=== PATIENT | female | born 1990 | race Two or more races ===

== ENCOUNTER 2024-12-06 18:22 | Inpatient (IN) | payer MEDICAID, SELFPAY ==
[2024-12-06] VITALS (41 sets, daily range): BP systolic 51–126; BP diastolic 31–92; PULSE 83–118; RESP 13–27; O2SAT 93–100; BMI 29.0
--- NOTE | 2024-12-06 18:31 | PD.EDCPR ---
ED CPR RME/HPI General Chief Complaint: Cardiac Arrest/CPR Stated Complaint: CARDIAC ARREST Time Seen by Provider: 12/06/24 18:55 Source: EMS Arrival date/time: 12/06/24 18:22 Mode of arrival: EMS Limitations: other (unresponsive) RME / HPI RME / HPI narrative: Dr. Vallejo?s Main ED Evaluation: 34-year-old female with history of seizure disorder was transported to the Emergency Department via ambulance after a CODE BLUE was activated. Per the EMS report, the patient's stated that she was napping when he found her unresponsive. He noted what he believed to be seizure-like activity and is considered she may have aspirated.. The patient subsequently experienced cardiac arrest, with loss of pulse. However, ROSC was achieved here. Upon arrival at the Emergency Department, the patient was unresponsive and required continued critical stabilization. No reliable historian is currently available to provide further medical history, including past seizures, cardiac issues, or other chronic conditions. MD complaint: found unresponsive Timing confirmed by: spouse Place: home Related Data Home Medications ?Medication ?Instructions ?Recorded ?Confirmed cetirizine 10 mg tablet (Zyrtec) 10 mg PO HS 09/09/23 09/09/23 dapsone 25 mg tablet 25 mg PO BID 09/09/23 09/09/23 famotidine 20 mg tablet 20 mg PO BID 09/09/23 09/09/23 hydroxyzine HCl 10 mg tablet 10 mg PO QID 09/09/23 09/09/23 levetiracetam 750 mg tablet 750 mg PO Q12H 09/09/23 09/09/23 (Keppra) montelukast 10 mg tablet 10 mg PO QPM 09/09/23 09/09/23 (Singulair) omalizumab 150 mg/mL subcutaneous 150 mg subcut QMONTH 09/09/23 09/09/23 syringe (Xolair) Allergies Allergy/AdvReac Type Severity Reaction Status Date / Time lamotrigine Allergy Intermediate rash Verified 09/10/23 11:25 Review of Systems Review of Systems Narrative Review of Systems: The review of systems is unobtainable due to the patient's unresponsive state. Limited information from EMS and the indicates recent seizure activity, loss of consciousness, possible aspiration, and cardiac arrest. Past Medical History Past Medical History NEUROLOGIC: Positive Neurological Disorders, Seizures and Migraine CARDIAC: Negative Cardiac Disorders or Congestive Heart Failure RESPIRATORY: Negative Chronic Obstructive Pulmonary Disease (COPD) GASTROINTESTINAL: Negative Gastrointestinal Disorders or Hepatitis GENITOURINARY: Negative Genitourinary Disorders or Renal Disease REPRODUCTIVE: Positive Previous Pregnancies MUSCULOSKELETAL: Positive Musculoskeletal Disorders ENDOCRINE: Negative Endocrine Disorders, Diabetes Mellitus Type 1 or Diabetes Mellitus Type 2 HEMATOLOGIC: Negative Blood Disorders OTHER HISTORY: Positive Hospitalization (seizures); Negative Autoimmune Disease, Shingles, Blood Transfusions, Blood Transfusion Reaction, Anesthesia Reactions or Cancer Family History FAMILY HISTORY: Negative Family Psychiatric Problems, Family Respiratory Disorders, Family Cardiac Disorders, Family Gastrointestinal Problems, Family Cancer, Family Surgery or Family Anesthesia Reaction Surgical History SURGICAL: Positive Section (x1) Social History SMOKING STATUS: Never smoker ED Exam Narrative Physical exam: GEN. APPEARANCE: Pt is unresponsive, laying down in emergency gurney. Code Blue in progress; patient now post-ROSC VITALS: All vitals were reviewed and the pulse ox was 97% on the mechanical vent. HEENT: Normocephalic, atraumatic. Dilated pupils at 8 mm, unequal in size, unresponsive to light and accommodation. NECK: Supple. CHEST: No deformity and no crepitus. CARDIOVASCULAR: Bounding tachycardic pulse. LUNGS: Patient on sedation, requiring ventilatory support. No spontaneous breathing; patient is intubated. ABDOMEN: Abdomen is soft and flat, no abnormal masses. EXTREMITIES: Flaccid muscle tone. SKIN: Warm and dry, no rashes noted. NEURO: GCS is 3. General Limitations: Present other (unresponsive) Course Course Course Narrative: CXR is ordered for determining etiology of post-intubation, s/t hypoxia. Quality Measures none Orders Category Date Time Status Admit to Inpatient Status Routine Admission 12/06/24 22:44 Active Patient Condition Routine Admission 12/06/24 22:[address] Screening NOW Care 12/06/24 18:57 Active Physical Education Professor STAT Care 12/06/24 18:55 Active Continuous Pulse Oximetry NOW Care 12/06/24 22:43 Active Continuous Pulse Oximetry STAT Care 12/06/24 18:55 Completed Cooling Measures NEEDED Care 12/06/24 22:43 Active EKG (ED ONLY) *Do not use* NOW Care 12/06/24 18:55 Completed Insert IV NOW Care 12/06/24 18:55 Active Intake and Output QSHIFT Care 12/06/24 22:45 Ordered Intubation NOW Care 12/06/24 19:11 Active NPO STAT Care 12/06/24 18:55 Active Neuro Check Q4H Care 12/06/24 22:43 Active Notify provider NEEDED Care 12/06/24 22:44 Active Strict Intake and Output Routine Care 12/06/24 18:55 Ordered Urinary Catheter QS Care 12/06/24 18:55 Active CA echo doppler complete Routine Exams 12/06/24 22:[address] cervical spine wo con Stat Exams 12/06/24 18:[address] chest abdomen pelvis w Stat Exams 12/06/24 18:[address] head/brain wo con Stat Exams 12/06/24 18:55 Completed EKG (ED Only) Stat Exams 12/06/24 18:55 Draft XR chest 1V portable Stat Exams 12/06/24 20:19 Completed XR chest 1V post procedure Stat Exams 12/06/24 18:58 Completed ABG [Arterial Blood Gas] Stat Lab 12/06/24 22:42 Ordered Arterial Blood Gas Stat Lab 12/06/24 19:19 Completed B-Type Natriuretic Peptide Stat Lab 12/06/24 18:30 Completed Blood Culture (Lab) Stat Lab 12/06/24 19:18 Received CBC AM DRAW Lab 12/07/24 05:00 Ordered CBC AM DRAW Lab 12/08/24 05:00 Ordered CBC AM DRAW Lab 12/09/24 05:00 Ordered CBC Stat Lab 12/06/24 18:30 Completed CMP [Comprehensive Metabolic Panel] Stat Lab 12/06/24 22:16 Completed Comprehensive Metabolic Panel AM DRAW Lab 12/07/24 05:00 Ordered Comprehensive Metabolic Panel Stat Lab 12/06/24 18:30 Completed LDH (Lactate Dehydrogenase) Stat Lab 12/06/24 18:30 Completed Lactate (Lactic Acid) Stat Lab 12/06/24 18:30 Completed Lactic Acid, 3 HR Stat Lab 12/06/24 22:16 Completed Lipase Stat Lab 12/06/24 18:30 Completed Magnesium AM DRAW Lab 12/07/24 05:00 Ordered Magnesium AM DRAW Lab 12/08/24 05:00 Ordered Magnesium AM DRAW Lab 12/09/24 05:00 Ordered Magnesium Stat Lab 12/06/24 18:30 Completed Partial Thromboplastin Time Stat Lab 12/06/24 18:30 Completed Phosphorous AM DRAW Lab 12/07/24 05:00 Ordered Phosphorous AM DRAW Lab 12/08/24 05:00 Ordered Phosphorous AM DRAW Lab 12/09/24 05:00 Ordered Phosphorous Stat Lab 12/06/24 18:30 Completed Procalcitonin Stat Lab 12/06/24 18:30 Completed Prothrombin Time with INR Stat Lab 12/06/24 18:30 Completed Sputum Culture and Gram Stain Stat Lab 12/06/24 20:03 Ordered Troponin I Stat Lab 12/06/24 18:30 Completed Urinalysis Stat Lab 12/06/24 20:04 Completed Urine Culture Stat Lab 12/06/24 20:03 Received Acetaminophen Supp [Tylenol Supp] Med 12/06/24 22:43 Active 650 mg MD Q6HR PRN Heparin Inj Med 12/07/24 09:00 Ordered 5,000 unit SC Q12HR Norepinephrine Inj [Levophed Inj] Med 12/06/24 19:00 Discontinued 4 mg IV .STK-MED ONE Norepinephrine/D5W 8mg/250ml [Levophed in D5W 8mg/250ml Med 12/06/24 19:02 Discontinued ] 8 mg in 250 ml IV .STK-MED Norepinephrine/D5W 8mg/250ml [Levophed in D5W 8mg/250ml Med 12/06/24 19:05 Active ] 8 mg in 250 ml IV 0.05 mcg/kg/min Ondansetron Inj [Zofran Inj] Med 12/06/24 22:43 Ordered 4 mg IV Q6H PRN Pantoprazole Inj [Protonix Inj] Med 12/07/24 09:00 Ordered 40 mg IVP QDAY Piper/Tazo 3.375 gm [Zosyn] Med 12/06/24 22:42 Ordered 3.375 gm in 50 ml IV Q8HR Piper/Tazo 3.375 gm [Zosyn] Med 12/06/24 18:55 Discontinued 3.375 gm in 50 ml IV X1 Ringers Lactated 1000 ml [Lactated Ringers] 1,000 ml Med 12/06/24 22:45 Ordered IV 75 mls/hr Sodium Bicarb 8.4% 50ml Vial* Med 12/06/24 19:39 Discontinued 50 meq IV X1 ONE Sodium Chloride 0.9% 1000 ml [Ns] 1,000 ml Med 12/06/24 20:23 Discontinued IV 999 mls/hr Sodium Chloride 0.9% 1000 ml [Ns] 1,779 ml Med 12/06/24 18:55 Discontinued IV 1,779 mls/hr Sodium Chloride Rt Hiral 10% [NS Rt Hiral 10%] Med 12/06/24 19:10 Discontinued 5 ml INH X1 ONE Vancomycin Pharmacy to Dose Med 12/07/24 09:00 Ordered 1 each IV QDAY levETIRAcetam INJ [Keppra Inj] Med 12/07/24 09:00 Ordered 750 mg IVP Q12HR Code Status Routine Oth 12/06/24 22:43 Ordered Sputum Induction PRN RT 12/06/24 19:15 Ordered Volume Ventilator Stat RT 12/06/24 Active Vital Signs Vital signs: Vital Signs Pulse Rate 116 H 12/06/24 18:32 Respiratory Rate 21 H 12/06/24 18:32 Blood Pressure 80/55 L 12/06/24 18:32 Pulse Oximetry (%) 100 12/06/24 18:32 Procedures -ED EKG Interpretation #1: Additional EKG comment: The EKG taken at 1909 shows normal sinus rhythm (NSR) at a rate of 89 bpm, with a normal axis and no ectopy. The QTc is 462 ms, and the QRS duration is 120 ms. There are non-specific ST abnormalities throughout, but no evidence of STEMI. Cardiac Arrest / CPR MDM Narrative MDM Narrative:: The differential diagnosis includes cardiac arrest, aspiration, seizure causing cardiac arrest, STEMI, bleed. I met with the patient's family, including her sister, for approximately 15 minutes, with the charge nurse present. During the discussion, further history was obtained from the sister, who explained that the patient was discovered face down on the ground by her niece. The exact duration of time the patient was in this position is unknown. According to the patient?s , a seizure was suspected because of a prior similar incident in which the patient was found face down after a seizure. The sister confirmed that the patient is currently prescribed Keppra 1,000 mg twice daily for seizure control. The niece immediately notified the sister upon finding the patient, who in turn contacted the . The arrived on the scene approximately four minutes later and called 911. He was instructed by the dispatcher to begin CPR and performed chest compressions until EMS arrived and took over care. The patient was given 2 liters of normal saline for fluid resuscitation. During intubation, aspiration was noted with food and fluids expelled through the endotracheal (ET) tube. A significant amount of aspirated material was suctioned to prevent further airway compromise. This aspiration event raises concerns for aspiration pneumonia and potential respiratory complications. The patient?s blood pressure showed a progressive decline, documented as follows: 1954: 89/47 mmHg 1999: 97/49 mmHg 2004: 99/49 mmHg 2009: 75/48 mmHg 2014: 62/51 mmHg However, by 2019, the patient's pressure improved to 102/60 mmHg, likely in response to fluid resuscitation and ongoing stabilization efforts. Further improvement was observed by 2039, with a blood pressure reading of 123/60 mmHg. Review of lab results revealed that the patient is positive for a urinary tract infection (UTI). Scribe Attestation: I, Jeanette Hansen, am scribing for and in the presence of Dr. Vallejo. Provider Notation: Although this document has been carefully reviewed, there may still be some phonetic and other typographical errors. These errors are purely grammatical due to imperfections in the software program and should not be construed in any way to compromise the substance of the patient's medical care during this visit. Patient data External records reviewed:: [facility] [place] previous records and EMS form Clinical information provided by:: EMS Social determinants that could affect healthcare access:: none Patient has the following chronic illnesses:: see PMH How is presenting disease/condition affected by chronic disease/condition?: caused by Evaluation data The following diagnostics were reviewed and interpreted by me:: lab results, radiology exam(s) and EKG tracing(s) Lab and/or radiology exams considered but not ordered:: n/a Interpretation Summary: I personally reviewed the radiology data and agree with the radiologist's interpretation. The chest X-ray is rotated, showing the ETT in good position, approximately 2 cm above the dahlia, with dense infiltrates present in the bilateral upper lobes and perihilar regions, a large gastric bubble, and the OGT in proper position within the stomach, according to my interpretation. Examination: CT cervical spine without contrast Exam date and time:December 06, 20242024 hrs. Indications: Seizure, cardiac arrest, patient found down unconscious today Findings: Axial sections demonstrate intact base of the skull. C1 exhibit satisfactory relationship to the odontoid. No acute cervical vertebral body fracture seen. Alignment posterior spinous processes satisfactory. Extensive opacity in the lung garcia, consider aspiration pneumonia Impression: No acute cervical fracture. Examination: CT chest with intravenous contrast CT abdomen with intravenous contrast CT pelvis with intravenous contrast Time of exam: December 06, 2024 at 2053 hrs. Indications: Cardiac arrest, seizure, patient found down unconscious today Findings: Endotracheal tube tip 18 mm above dahlia No thoracic aortic aneurysm dilatation Negative for pulmonary artery emboli Extensive bilateral lung opacity consistent with pneumonia, consider aspiration pneumonia Suspicious for nondisplaced fracture body the sternum sagittal image 153 No thoracic vertebral body compression fracture Acute fracture left third rib anteriorly No focal liver or splenic lesions No gallstones No pancreatic mass Fluid distended small bowel loops in the midabdomen Aorta intact, no free blood in the abdomen Negative for pneumoperitoneum 18 mm fat-containing umbilical hernia Normal appendix Urinary Monge catheter No pelvic mass Hips bones of the pelvis lumbar vertebral bodies intact Impression: Extensive bilateral lung opacity consistent with aspiration pneumonia No pneumothorax Acute fracture left third rib anteriorly Suspicious for nondisplaced fracture body of the sternum No abdominal parenchymal laceration Abdominal aorta intact Examination: CT brain head without contrast. Date and time of exam:December 06, 20242 hrs. Indications: Cardiac arrest, seizure, patient found unconscious today Findings: Severe diffuse generalized cerebral edema Small ventricles No acute hemorrhage Pansinusitis Cranial vault intact Impression: Severe diffuse generalized cerebral edema Examination: AP chest single view Indications: Hypoxic respiratory failure postintubation today Findings: Endotracheal tube tip 23 mm above dahlia Bilateral pneumonia, extensive in the left upper lobe Normal heart size Orogastric tube in the stomach although the stomach is still air distended Impression: Endotracheal tube tip 23 mm above dahlia Bilateral pneumonia, extensive in the left upper lobe Medications / Prescriptions Medications or Prescriptions considered but not ordered:: n/a Medication administrations:: Medication Administration History Acetaminophen (Acetaminophen Supp 650 Mg Supp) 650 mg MD Q6HR PRN PRN Reason: [id number] Stop: 01/05/25 22:42 Heparin Sodium (Porcine) (Heparin Sod Inj 5000 Unit/Ml Vial) 5,000 unit SC Q12HR [facility] Stop: 12/21/24 08:59 Norepinephrine/Dextrose (Levophed In D5w 8mg/250ml) 8 mg in 250 mls @ 7.654 mls/hr IV .Q24H PRN; Protocol PRN Reason: PER PROTOCOL Stop: 01/05/25 19:04 Last Titration: 12/06/24 20:17 Dose: 0.13 mcg/kg/min, 19.901 mls/hr Documented By: Titration: 12/06/24 20:11 Dose: 0.11 mcg/kg/min, 16.84 mls/hr Documented By: Titration: 12/06/24 20:00 Dose: 0.09 mcg/kg/min, 13.778 mls/hr Documented By: Titration: 12/06/24 19:39 Dose: 0.07 mcg/kg/min, 10.716 mls/hr Documented By: Admin: 12/06/24 19:17 Dose: 0.05 mcg/kg/min, 7.654 mls/hr Documented By: ALAN Piperacillin/Tazobactam/Dextrose (Zosyn) 3.375 gm in 50 mls @ 100 mls/hr IV Q8HR [facility] Stop: 12/13/24 22:41 Lactated Ringer's (Lactated Ringers) 1,000 mls @ 75 mls/hr IV .[id number] [facility] Stop: 12/08/24 01:24 Levetiracetam (Levetiracetam Inj 100 Mg/Ml Vial 5ml) 750 mg IVP Q12HR [facility] Stop: 01/06/25 08:59 Ondansetron HCl (Ondansetron Inj 2 Mg/Ml Inj 2 Ml) 4 mg IV Q6H PRN; Protocol PRN Reason: NAUSEA OR VOMITING Stop: 01/05/25 22:42 Pantoprazole Sodium (Pantoprazole Inj 40 Mg Vial) 40 mg IVP QDAY [facility] Stop: 01/06/25 08:59 Pharmacy Consult (Vancomycin Pharmacy To Dose 1 Each Each) 1 each IV QDAY [facility] Stop: 01/06/25 08:59 Discontinued Medications Sodium Chloride (Ns) 1,779 mls @ 1,779 mls/hr 30 ml/kg infuse over 60 min (1779 ml) IV .Q1H ONE Stop: 12/06/24 19:54 Last Infusion: 12/06/24 19:58 Dose: Infused Documented By: Admin: 12/06/24 19:30 Dose: 1,779 mls/hr Documented By: DENICE Piperacillin/Tazobactam/Dextrose (Zosyn) 3.375 gm in 50 mls @ 100 mls/hr IV X1 ONE Stop: 12/06/24 19:24 Last Infusion: 12/06/24 19:57 Dose: Infused Documented By: Admin: 12/06/24 19:18 Dose: 100 mls/hr Documented By: ALAN Norepinephrine/Dextrose (Levophed In D5w 8mg/250ml) Confirm Administered Dose 8 mg in 250 mls @ ud IV .STK-MED ONE Stop: 12/06/24 19:03 Last Admin: 12/06/24 19:20 Dose: Not Given Documented By: DENICE Non-Admin Reason: Duplicate Medication on eMAR Sodium Chloride (Ns) 1,000 mls @ 999 mls/hr IV .Q1H1M ONE Stop: 12/06/24 21:23 Last Infusion: 12/06/24 21:27 Dose: Infused Documented By: Admin: 12/06/24 20:25 Dose: 999 mls/hr Documented By: DENICE Norepinephrine Bitartrate (Norepinephrine Inj 1 Mg/Ml Vial 4 Ml) Confirm Administered Dose 4 mg IV .STK-MED ONE Stop: 12/06/24 19:01 Last Admin: 12/06/24 19:18 Dose: Not Given Documented By: DENICE Non-Admin Reason: Duplicate Medication on eMAR Sodium Bicarbonate (Sodium Bicarb Inj 8.4% 1 Meq/Ml Vial 50 Ml) 50 meq IV X1 ONE Stop: 12/06/24 19:40 Last Admin: 12/06/24 19:47 Dose: 50 meq Documented By: DENICE Sodium Chloride (Sodium Chloride Rt 10% 15 Ml Nebu) 5 ml INH X1 ONE Stop: 12/06/24 19:11 as above, if any Consultations Consultation(s) initiated? (list below): Yes Consultation #1 (Physician, Specialty, Details): Discussed case with [the resident physician, attending Dr. Berry] from Hospitalist service regarding admission. Discussed patients ED course, exam findings, labs, and radiology results. The Hospitalist [agrees] to accept the patient for admission. Time: 21:55 Diagnosis Cardiac arrest differential diagnosis: other (see narrative) Most likely diagnosis given after review of the tests above:: see clinical impression below Admission Indicated Admission indicated?: indicated Admission Request Was there a request for admission?: Yes Admission Attestation Admission request attestation: Discussed case with [] from Hospitalist service regarding admission. Discussed patients ED course, exam findings, labs, and radiology results. The Hospitalist [agrees,declines] to accept the patient for admission. Disposition Plan Disposition Plan: Admit Critical Care Time Critical Care Time Critical Care Time: Yes Total Critical Care Time (min.): 90 Attestation: The high probability of sudden, clinically significant deterioration in the patient?s condition required the highest level of my preparedness to intervene urgently. ? The services I provided to this patient were to treat and/or prevent clinically significant deterioration. Services included the following: chart data review, reviewing nursing notes and/or old charts, documentation time, sales representative consultant collaboration regarding findings and treatment options, medication orders and management, direct patient care, vital sign assessments and ordering, interpreting and reviewing diagnostic studies and lab tests. ? Aggregate critical care time includes only time during which I was engaged in work directly related to the patient?s care, as described above, whether at bedside or elsewhere in the Emergency Department. It did not include time spent performing other reported procedures or the services of residents, students, nurses or physician assistants. Discharge Plan Problem List Clinical Impression: Cardiac arrest, Aspiration of gastric contents, Metabolic acidosis, UTI (urinary tract infection), Hypoxia
--- NOTE | 2024-12-06 18:52 | PC.NURSE ---
1819 Patient arrived via ambulance CPR in progress. 1814 epi given by warehouse laborer, blood sugar 105, upon arrival PEA pulseless, I/O to right lower ext, hx of seizure, was found unresponsive by family, bvm 1822 pulse check, [place]ytole, cont CPR 1824 20g right Forearm, cont CPR 66% pulse ox 1824 + femoral pulse palpated, CPR discontinued [address] Vallejo, 7.5cm tube, 23cm at the teeth. + co2 detected, color change, + chest rise 1828 18g left forearm 1831 T 96.8R, 115HR, BP 80/55, 97% vent, 21 RR 1840 16F [place] with urometer inserted, + urine colled, yellow, noted vaginal bleed with katherine pad in place Report handed off to Linn HODGES.
--- NOTE | 2024-12-06 18:55 | XR_ITS ---
Examination: CT chest with intravenous contrast CT abdomen with intravenous contrast CT pelvis with intravenous contrast 2-D coronal and sagittal reconstructions Time of exam: December 06, 2024 at 2053 hrs. Indications: Cardiac arrest, seizure, patient found down unconscious today CTDI: vol (mGy) : 21.01 DLP: (mGycm): 8 Technique: Multiple axial images of the chest, abdomen and pelvis with intravenous contrast, 3.0 mm slice thickness. Images obtained post intravenous injection Isovue 370 60 cc. 2-D sagittal and coronal reconstructions. Low dose protocols were performed. One or more of the following dose reduction techniques were used; automated exposure control, adjustment of the mA and/or KV according to patient size, use of iterative reconstruction technique. Findings: Endotracheal tube tip 18 mm above dahlia No thoracic aortic aneurysm dilatation Negative for pulmonary artery emboli Extensive bilateral lung opacity consistent with pneumonia, consider aspiration pneumonia Suspicious for nondisplaced fracture body the sternum sagittal image 153 No thoracic vertebral body compression fracture Acute fracture left third rib anteriorly No focal liver or splenic lesions No gallstones No pancreatic mass Fluid distended small bowel loops in the midabdomen Aorta intact, no free blood in the abdomen Negative for pneumoperitoneum 18 mm fat-containing umbilical hernia Normal appendix Urinary Monge catheter No pelvic mass Hips bones of the pelvis lumbar vertebral bodies intact Impression: Extensive bilateral lung opacity consistent with aspiration pneumonia No pneumothorax Acute fracture left third rib anteriorly Suspicious for nondisplaced fracture body of the sternum No abdominal parenchymal laceration Abdominal aorta intact
--- NOTE | 2024-12-06 18:55 | XR_ITS ---
Examination: CT cervical spine without contrast 2-D sagittal reconstructions 2-D coronal reconstructions 3-D reconstructions. Exam date and time:December 06, 20242024 hrs. Indications: Seizure, cardiac arrest, patient found down unconscious today CTDI:vol (mGy) 14.66 DLP: (mGycm) 393 Technique: Multiple 2 mm axial sections of the cervical spine have been obtained. The coronal and sagittal reconstructions have been obtained. 3-D reconstructions have been obtained. Low dose protocols were performed. One or more of the following dose reduction techniques were used; automated exposure control, adjustment of the mA and/or KV according to patient size, use of iterative reconstruction technique. Findings: Axial sections demonstrate intact base of the skull. C1 exhibit satisfactory relationship to the odontoid. No acute cervical vertebral body fracture seen. Alignment posterior spinous processes satisfactory. Extensive opacity in the lung garcia, consider aspiration pneumonia Impression: No acute cervical fracture.
--- NOTE | 2024-12-06 18:55 | XR_ITS ---
Examination: CT brain head without contrast. 2-D sagittal coronal reconstructions Date and time of exam:December 06, 20242 hrs. Indications: Cardiac arrest, seizure, patient found unconscious today CTDI: vol (mGy):50.90 DLP: (mGycm):1068 Technique: Multiple CT axial sections of the brain have been obtained, 5 mm slice thickness. Contrast has not been administered. 2-D sagittal, coronal reconstructions have been obtained Low dose protocols were performed. One or more of the following dose reduction techniques were used; automated exposure control, adjustment of the mA and/or KV according to patient size, use of iterative reconstruction technique. Findings: Severe diffuse generalized cerebral edema Small ventricles No acute hemorrhage Pansinusitis Cranial vault intact Impression: Severe diffuse generalized cerebral edema
--- NOTE | 2024-12-06 18:55 | EKG_ITS ---
[facility] Test Date: 2024-12-06 Pat Name: DAKOTA DURBIN Department: Room: - Gender: Female Order Packer: : [id number] Requested By: Jesus Sheldon Order Number: [id number] Reading MD: Jesus Sheldon Measurements Intervals [place] Rate: 89 P: 4 VT: 125 QRS: 3 QRSD: 120 T: 250 QT: 416 QTc: 506 Interpretive Statements SINUS RHYTHM MODERATE INTRAVENTRICULAR CONDUCTION DELAY [110+ ms QRS DURATION] ST DEVIATION AND MODERATE T-WAVE ABNORMALITY, CONSIDER ANTEROLATERAL ISCHEMIA [-0.1+ mV T WAVE IN V3-V6] ST DEVIATION AND MODERATE T-WAVE ABNORMALITY, CONSIDER INFERIOR ISCHEMIA [-0.1+ mV T WAVE IN II/aVF] No previous ECG available for comparison /store/S0/[id number].pdf
--- NOTE | 2024-12-06 18:58 | XR_ITS ---
Examination: AP chest single view Technique one AP portable supine chest single view Exam date and time: December 06, 2024 1932 hrs. Comparison November 22, 2016 Indications: Hypoxic respiratory failure Findings: Endotracheal tube tip approximately 3 cm above dahlia Bilateral pneumonia consider aspiration pneumonia Orogastric tube in stomach Normal heart size Reduced inspiratory effort Possible fluid capping the right lung Impression: Bilateral pneumonia, consider aspiration pneumonia Endotracheal tube tip 3.2 cm above dahlia
--- NOTE | 2024-12-06 19:05 | PD.RESPROC ---
Procedures Procedure Date / Time 12/06/24 1826 Abscess I/D Informed consent obtained: procedure done urgently Intubation Indication(s): other (PEA) Informed consent obtained: procedure done urgently Time out done, and the following verified: correct patient and procedure Sedative: none Paralytic: other (None) Laryngoscope: fiber optic video scope ET tube size: 7.5 Tube secured depth (cm): 23 Tube secured location: teeth Tube placement confirmation: visualized tube passing through cords, equal breath sounds bilaterally and confirmation by capnometry Patient tolerated procedure: no complications
[2024-12-06 19:07] LABS: Basophils # (Auto) 0.1 Thou/mm3 (0.0-0.2); Basophils % (Auto) 0 % (0-2.5); Eosinophils # (Auto) 0.2 Thou/mm3 (0.0-0.5); Eosinophils % (Auto) 2 % (0-10); Hematocrit 36.9 % (36.0-46.0); Immature Granulocytes % (Auto) 6 % (0-0); Immature Granulocytes Auto 0.69 Thou/mm3 (0.00-0.00); Lymphocytes # (Auto) 6.8 Thou/mm3 (1.0-4.8); Lymphocytes % (Auto) 61 % (10-50); Mean Corpuscular HGB Conc 27.1 g/dl (31.0-37.0); Mean Corpuscular Hemoglobin 23.6 pg (25.0-35.0); Mean Corpuscular Volume 87 fL (80-100); Monocytes # (Auto) 0.4 Thou/mm3 (0.0-0.8); Monocytes % (Auto) 4 % (0-12); Neutrophils % (Auto) 27 % (37-80); Nucleated Red Blood Cell # 0.08 Thou/mm3 (0.00-0.00); Nucleated Red Blood Cell % 1 /100 WBC (0); Platelet Count 297 Thou/mm3 (140-440); RDW Standard Deviation 49.1 fL (36.4-46.3); Red Blood Count 4.24 Miln/mm3 (4.00-5.20); White Blood Count 11.2 Thou/mm3 (3.6-11.0)
[2024-12-06] MEDS: Norepinephrine/D5W 8mg/250ml 8 MG/250 ML BAG 7.654 MG IV (19:17)
[2024-12-06] MEDS: PIPER/TAZO 3.375 GM 3.375 GM/50 ML BAG IV (19:18)
[2024-12-06 19:19] LABS: B-Type Natriuretic Peptide 89 pg/mL (0-100)
[2024-12-06 19:24] LABS: Base Excess -21 (-3-3); HCO3 12 mEq/L (20-26); Inspired Oxygen, FIO2 99 %; O2 Saturation 100 % (91-98); PCO2 62 mmHg (32.0-48.0); PO2 287 mmHg (83-108)
[2024-12-06 19:28] LABS: pH, Arterial 6.89 (7.35-7.45)
[2024-12-06] MEDS: SODIUM CHLORIDE 0.9% 1000 ML 1,779 ML 1779 ML IV (19:30)
[2024-12-06 19:34] LABS: Allen Test Performed/OK; Puncture Site Right Brachial
[2024-12-06 19:43] LABS: Alanine Aminotransferase 44 U/L (10-49); Albumin, Serum 3.9 gm/dL (3.5-5.0); Albumin/Globulin Ratio 1.4 (1.2-2.2); Alkaline Phosphatase 103 U/L (46-116); Anion Gap 28 (7-16); Aspartate Amino Transferase 69 U/L (0-34); BUN/Creatinine Ratio 7 Ratio (12-20); Bilirubin,Total < 0.2 mg/dL (0.3-1.2); Blood Urea Nitrogen 8 mg/dL (9-23); Calcium 9.5 mg/dL (8.3-10.6); Calcium (Corrected) 9.6 mg/dL (8.5-10.1); Chloride 106 mMol/L (98-107); Creatinine (Component) 1.1 mg/dL (0.6-1.3); Estimated Creatinine Clearance 77.6 mL/min (>60); Globulin 2.7 gm/dL (2.3-3.5); Glucose 371 mg/dL (74-106); Lipase 49 U/L (12-53); Magnesium 3.2 mg/dL (1.6-2.6); Osmolality,Calculated 303 (275-295); Potassium 4.9 mMol/L (3.4-5.1); Procalcitonin 0.07 ng/ml (0.0-0.49); Sodium 146 mMol/L (136-145); Total Protein 6.6 gm/dL (5.7-8.2); Troponin I < 0.020 ng/mL (0.0-0.045); eGFR > 60 See Note
[2024-12-06 19:45] LABS: INR 1.1 (0.9-1.3); Partial Thromboplastin Time 45.3 Seconds (22.0-36.0); Prothrombin Time 11.6 Seconds (9.0-12.2)
[2024-12-06] MEDS: SODIUM BICARB INJ 8.4% 1 mEq/ML VIAL 50 ML 50 MEQ IV (19:47)
[2024-12-06 19:50] LABS: Carbon Dioxide 11.8 mMol/L (20.0-31.0)
[2024-12-06 19:51] LABS: Phosphorous 11.6 mg/dL (2.4-5.1)
[2024-12-06 19:56] LABS: LDH (Lactate Dehydrogenase) 336 U/L (120-246)
[2024-12-06 20:10] LABS: Collection Type, Urine Clean Catch
--- NOTE | 2024-12-06 20:19 | XR_ITS ---
Examination: AP chest single view Technique: AP portable supine chest single view Indications: Hypoxic respiratory failure postintubation today Findings: Endotracheal tube tip 23 mm above dahlia Bilateral pneumonia, extensive in the left upper lobe Normal heart size Orogastric tube in the stomach although the stomach is still air distended Impression: Endotracheal tube tip 23 mm above dahlia Bilateral pneumonia, extensive in the left upper lobe
[2024-12-06] MEDS: SODIUM CHLORIDE 0.9% 1000 ML 1,000 ML 999 ML IV (20:25)
[2024-12-06 20:33] LABS: Bilirubin,Urine Negative (Negative); Blood,Urine 3+ (Negative); Color,Urine Lt-Yellow (Lt Yel-Yel); Glucose, Urine 2+ (Negative); Hyaline Casts,Urine < 1 /hpf (0-1); Ketones,Urine Trace (Negative); Leukocyte Esterase,Urine Negative (Negative); Nitrite,Urine Negative (Negative); Protein,Urine 3+ (Neg - Trace); RBC,Urine 48 /hpf (0-3); Specific Gravity,Urine 1.014 (1.001-1.035); Squamous Epithelial Cell,Urine 5 /hpf (0-5); Urobilinogen,Urine Negative mg/dL (0.0-1.0); WBC,Urine 37 /hpf (0-5)
[2024-12-06 20:36] LABS: Clarity,Urine Hazy (Clear/Hazy)
--- NOTE | 2024-12-06 21:13 | PC.LAC ---
PATIENT BACK FROM CT.
--- NOTE | 2024-12-06 21:24 | PC.NURSE ---
AT BEDSIDE. NO DISTRESS AT THIS TIME.
[2024-12-06 22:02] LABS: Reflex Lactate? Y
--- NOTE | 2024-12-06 22:51 | PD.RESHP ---
Documentation for date of: 12/06/24 [facility] History of Present Illness History of present illness: Patient is a 34-year-old female with past medical history of epilepsy and urticaria that presented to the ED by EMS after being found down by at home. Patient came in as a CODE BLUE and ROSC was achieved 40 minutes after being found down. Per family patient was last well-known at around 4:30 PM. Per one of the kids heard pain and found to mom on the floor around 5, got home around 5:30 PM and patient was found without a pulse. Family denies any signs of seizure-like activity, and last seizure was about 2 months ago. Patient is seen by Dr Blanchard. Per family patient recently had a cold but was otherwise healthy. Patient is otherwise healthy and had no other complaints prior to event. Unable to obtain ROS as patient is currently unresponsive and on ventilation. Per family patient has allergies to lamotrigine which causes a rash. Patient currently on Xolair, Singulair, Keppra, and dapsone Patient past past surgical history of tubal ligation and Per family patient does not smoke, consume alcohol, or use illicit drugs. Patient is full code. Pertinent labs: WBCs 11.2, hemoglobin 10, ABG pH 6.89, CO2 62, bicarb 16.9, lactic acid 5.0 phosphorus 11.6, magnesium 3.2, LDH 336, CT head noted to show diffuse extensive edema. Patient intubated and started on pressors while in ED. Exam Vital Signs Pulse Resp BP Pulse Ox FiO2 115 H 22 H 102/72 99 100 12/06/24 21:31 12/06/24 21:31 12/06/24 21:31 12/06/24 21:12/06/24 19:09 Narrative Exam GENERAL: Intubated and on mechanical ventilation. Nonreactive to painful stimuli. Unresponsive. HEART: Regular rate and rhythm, no murmurs, rubs or gallops. LUNGS: Rhonchi on auscultation both lungs. Mechanically ventilated. ABDOMEN: Obese. Soft. No grimacing on palpation. EXTREMITIES: No edema noted. SKIN: Warm and dry, no jaundice or rashes noted. NEURO: GCS of 3 with no motor response or eye-opening, but unable to obtain verbal response as she is intubated. Pupils nonreactive?fixed and dilated. Does not react to painful stimuli. No reaction to Babinski exam. Results: Labs 12/06/24 18:30 12/06/24 22:16 Labs: Short CBC 12/06/24 Range/Units 18:30 WBC 11.2 H (3.6-11.0) Thou/mm3 Hgb 10.0 L (12.0-16.0) g/dL Hct 36.9 (36.0-46.0) % Plt Count 297 (140-440) Thou/mm3 BMP 12/06/24 18:30 Sodium 146 H Potassium 4.9 Chloride 106 Carbon Dioxide 11.8 L* BUN 8 L Creatinine 1.1 Glucose 371 H Calcium 9.5 Cardiac Enzymes 12/06/24 Range/Units 18:30 Troponin I < 0.020 (0.0-0.045) ng/mL Liver Function 12/06/24 Range/Units 18:30 Total Bilirubin < 0.2 L (0.3-1.2) mg/dL AST 69 H (0-34) U/L ALT 44 (10-49) U/L Alkaline Phosphatase 103 (46-116) U/L Albumin 3.9 (3.5-5.0) gm/dL Urine 12/06/24 Range/Units 20:04 Urine Color Lt-Yellow (Lt Yel-Yel) Urine Clarity Hazy (Clear/Hazy) Urine pH 7.0 (5.0-7.0) Ur Specific Gorman 1.014 (1.001-1.035) Urine Protein 3+ A (Neg - Trace) Urine Glucose (UA) 2+ A (Negative) ABG Interpretation ABG results: 12/06/24 19:19 ABG pH 6.89 L* ABG pCO2 62 H ABG pO2 287 H ABG HCO3 12 L ABG O2 Saturation 100 H ABG Base Excess -21 L Quality Measures Quality Measures none Medications Home Medications and Allergies Home Medications ?Medication ?Instructions ?Recorded ?Confirmed ?Type cetirizine 10 mg tablet (Zyrtec) 10 mg PO HS 09/09/23 09/09/23 History dapsone 25 mg tablet 25 mg PO BID 09/09/23 09/09/23 History famotidine 20 mg tablet 20 mg PO BID 09/09/23 09/09/23 History hydroxyzine HCl 10 mg tablet 10 mg PO QID 09/09/23 09/09/23 History levetiracetam 750 mg tablet 750 mg PO Q12H 09/09/23 09/09/23 History (Keppra) montelukast 10 mg tablet 10 mg PO QPM 09/09/23 09/09/23 History (Singulair) omalizumab 150 mg/mL subcutaneous 150 mg subcut QMONTH 09/09/23 09/09/23 History syringe (Xolair) Allergies Allergy/AdvReac Type Severity Reaction Status Date / Time lamotrigine Allergy Intermediate rash Verified 09/10/23 11:25 Visit Medications Acetaminophen (Acetaminophen Supp 650 Mg Supp) 650 mg MD Q6HR PRN PRN Reason: [id number] Stop: 01/05/25 22:42 Heparin Sodium (Porcine) (Heparin Sod Inj 5000 Unit/Ml Vial) 5,000 unit SC Q12HR [facility] Stop: 12/21/24 08:59 Norepinephrine/Dextrose (Levophed In D5w 8mg/250ml) 8 mg in 250 mls @ 7.654 mls/hr IV .Q24H PRN; Protocol PRN Reason: PER PROTOCOL Stop: 01/05/25 19:04 Last Titration: 12/06/24 20:17 Dose: 0.13 mcg/kg/min, 19.901 mls/hr Piperacillin/Tazobactam/Dextrose (Zosyn) 3.375 gm in 50 mls @ 100 mls/hr IV Q8HR [facility] Stop: 12/13/24 22:41 Lactated Ringer's (Lactated Ringers) 1,000 mls @ 75 mls/hr IV .[id number] [facility] Stop: 12/08/24 01:24 Levetiracetam (Levetiracetam Inj 100 Mg/Ml Vial 5ml) 750 mg IVP Q12HR [facility] Stop: 01/06/25 08:59 Ondansetron HCl (Ondansetron Inj 2 Mg/Ml Inj 2 Ml) 4 mg IV Q6H PRN; Protocol PRN Reason: NAUSEA OR VOMITING Stop: 01/05/25 22:42 Pantoprazole Sodium (Pantoprazole Inj 40 Mg Vial) 40 mg IVP QDAY [facility] Stop: 01/06/25 08:59 Pharmacy Consult (Vancomycin Pharmacy To Dose 1 Each Each) 1 each IV QDAY [facility] Stop: 01/06/25 08:59 Discontinued Medications Sodium Chloride (Ns) 1,779 mls @ 1,779 mls/hr 30 ml/kg infuse over 60 min (1779 ml) IV .Q1H ONE Stop: 12/06/24 19:54 Last Infusion: 12/06/24 19:58 Dose: Infused Piperacillin/Tazobactam/Dextrose (Zosyn) 3.375 gm in 50 mls @ 100 mls/hr IV X1 ONE Stop: 12/06/24 19:24 Last Infusion: 12/06/24 19:57 Dose: Infused Sodium Chloride (Ns) 1,000 mls @ 999 mls/hr IV .Q1H1M ONE Stop: 12/06/24 21:23 Last Infusion: 12/06/24 21:27 Dose: Infused Sodium Bicarbonate (Sodium Bicarb Inj 8.4% 1 Meq/Ml Vial 50 Ml) 50 meq IV X1 ONE Stop: 12/06/24 19:40 Last Admin: 12/06/24 19:47 Dose: 50 meq Sodium Chloride (Sodium Chloride Rt 10% 15 Ml Nebu) 5 ml INH X1 ONE Stop: 12/06/24 19:11 Assessment & Plan Plan Patient is a 34-year-old female with past medical history of seizures and urticaria that presented to the ED with cardiac arrest and achieved ROSC admitted to ICU for further management. Neuro #Diffuse cerebral edema CT of the head shows diffuse cerebral edema likely secondary to cardiac arrest causing hypoxemia Patient currently on mechanical ventilation without any sedation Pupils fixed and dilated with no pupillary reflex with light. Neurology consulted appreciate recommendations Pending EEG Patient started on cooling measures #History of seizures Continue home med Keppra 750 twice daily Cardio #Cardiac arrest s/p ROSC Patient achieved ROSC after about 45 minutes per family Patient started on cooling measures Pending cardiac echo #Shock Cardiogenic VS distributive Patient is postcardiac arrest Patient also noted to have possible aspiration pneumonia on imaging and patient recently had URI symptoms Patient on Levophed Patient on broad-spectrum antibiotics vancomycin and Zosyn Follow-up blood cultures Follow-up MRSA screen Cardiac echo pending Pulm #Acute hypoxic hypercapnic respiratory failure Likely secondary to cardiac arrest Patient on mechanical ventilation without any sedation Follow-up ABGs to adjust ventilation settings #Aspiration pneumonia CT chest showing upper lobe pneumonia likely aspiration Patient on broad-spectrum antibiotics Follow-up blood cultures Will narrow antibiotics pending results Renal #Anion gap metabolic acidosis #Lactic acidosis Secondary to cardiac arrest causing hypoperfusion and anaerobic metabolism Patient given bicarb pushes while in ED ABG in ED with pH of 6.89, CO2 62 Lactic acid downtrending Patient given IV fluids Continue monitor lactic acid #Hyperphosphatemia Likely secondary in setting of cardiac arrest causing cell and release of phosphate Will continue to monitor GI #Transaminitis Secondary to cardiac arrest VS fatty liver disease Will continue monitoring liver enzymes GI prophylaxis with Protonix ID #Aspiration pneumonia Will continue with management as noted above in pulm section Will narrow antibiotics pending further results Heme #Leukocytosis Reactive VS secondary to aspiration pneumonia Will continue to monitor for now Patient on broad-spectrum antibiotics #Normocytic anemia Likely secondary to menstruation No active signs of bleeding noted DVT prophylaxis: Heparin CODE STATUS: Full code Case discussed with attending physician Dr. Jamal Healy MD PGY3 Attending Provider Attestation/Addendum I have examined the patient, reviewed labs and imaging findings, discussed the case with the resident(s), and reviewed entered orders. I agree with the plan of care as outlined in this note, with these additional summaries/recommendations: Patient is a 34-year-old female with a medical history of seizure disorder, migraine headaches, seasonal allergies, and GERD who presents to [facility] emergency department on 12/06/2024 via EMS after cardiopulmonary arrest. Per patient's sister at bedside, patient was alone for approximately an hour. Patient's arrived and found her unresponsive and noted seizure-like activity. Patient subsequently experienced cardiopulmonary arrest with no pulse and CPR was initiated and route to the hospital. ROSC was achieved and patient was intubated in the emergency room. On physical exam in the emergency department patient's pupils are noted to be dilated and unresponsive to light and accommodation. Neuro #Acute encephalopathy #Seizure Disorder #Cerebral edema Most likely patient has hypoxic encephalopathy and cerebral edema secondary to cardiopulmonary arrest. CT Head wo: Severe diffuse generalized cerebral edema Plan: Seizure precautions. Consult neurology, recommendations appreciated. Frequent Neurochecks. Start active temperature control. Resume home Keppra dose. Not currently requiring sedation and pupils unreactive which unfortunately is a poor prognostic sign. We will monitor closely for change in mental status. Family updated on prognosis Cardio # Cardiopulmonary arrest # Undifferentiated shock Most likely patient had seizure that led to aspiration and then cardiopulmonary arrest. Troponin within normal limits and EKG shows normal sinus rhythm, rate 89, no LAD, QTc 462, nonspecific ST changes Etiology for shock: Distributive vs cardiogenic vs sedation Echocardiogram ordered Plan: Continue Levophed and titrate to MAP of 65. Post cardiac arrest temperature control Pulmonary # Acute hypoxic & Hypercapnic respiratory failure # Aspiration pneumonia/Pneumonitis CT Chest: Extensive bilateral opacities consistent with aspiration pneumonia ABG on arrival: pH 6.89, pCO2 62, pO2 287, bicarb 12 S/P Intubation 12/07/24, on mechanical ventilation Plan: Stat ABG ordered. Postextubation x-ray shows appropriate ET tube placement. Continue mechanical ventilation with daily ABGs. Start IV Zosyn sputum cultures ordered. Renal #AGMA #Lactic Acidosis 2/2 to cardiopulmonary arrest On admission lactic acid 16, anion gap 28, pH 6.89 Most likely type A lactic acidosis secondary to shock Plan: Received 2 Amps of bicarb in the ED. Repeat lactic acid now at 5.0. We will start maintenance fluids, continue to trend, and repeat ABG ordered. #Hyperphosphatemia #Hypermagnesemia #Hypocalcemia On Admission phosphorus 11.6 and magnesium 3.2 Plan: 1 g calcium chloride ordered. Repeat levels in AM. MSK #Rib Fracture #Fracture of sternum CT C/A/P: Acute fracture left third rib anteriorly and nondisplaced fracture body of sternum Cervical spine CT: No acute cervical fracture Plan: Pain management as needed GI #GI prophylaxis: Start daily pantoprazole Infectious #Aspiration Pneumonia #Sepsis Imaging shows bilateral opacities consistent with aspiration pneumonia Sputum, blood, and urine cultures ordered qSOFA 3 points indicating 3-14 fold increase in in-hospital mortality Tylenol as needed for fever, recieved 30cc/kg Fluid resuscitation in the ED Plan: Start IV Zosyn and follow-up culture results. Dr. Berry
[2024-12-06 23:10] LABS: Alanine Aminotransferase 96 U/L (10-49); Albumin, Serum 3.9 gm/dL (3.5-5.0); Albumin/Globulin Ratio 1.5 (1.2-2.2); Alkaline Phosphatase 214 U/L (46-116); Anion Gap 16 (7-16); Aspartate Amino Transferase 180 U/L (0-34); BUN/Creatinine Ratio 13 Ratio (12-20); Bilirubin,Total 0.4 mg/dL (0.3-1.2); Blood Urea Nitrogen 12 mg/dL (9-23); Calcium 7.3 mg/dL (8.3-10.6); Calcium (Corrected) 7.4 mg/dL (8.5-10.1); Carbon Dioxide 16.9 mMol/L (20.0-31.0); Chloride 110 mMol/L (98-107); Creatinine (Component) 0.9 mg/dL (0.6-1.3); Estimated Creatinine Clearance 94.9 mL/min (>60); Globulin 2.6 gm/dL (2.3-3.5); Glucose 222 mg/dL (74-106); Osmolality,Calculated 291 (275-295); Potassium 4.1 mMol/L (3.4-5.1); Sodium 143 mMol/L (136-145); Total Protein 6.5 gm/dL (5.7-8.2); eGFR > 60 See Note
--- NOTE | 2024-12-06 23:27 | PC.NURSE ---
REPORT GIVEN TO TRACIE MAGANA. ALL QUESTIONS ASKED AND ANSWERED. TYREE, CONTINUES TO RUN WITHOUT DIFFICULTY. PATIENT TRANSFERRED TO ROOM ON VENTILATOR WITH STAFF. NO DISTRESS NOTED AT TRANSFER. FAMILY UPDATED ON MOVE.
[2024-12-07] VITALS (131 sets, daily range): BP systolic 65–173; BP diastolic 45–133; PULSE 83–144; RESP 0–36; TEMP 33.3–37.5; O2SAT 86–99
[2024-12-07] MEDS: RINGERS LACTATED 1000 ML 1,000 ML 75 ML IV (00:30)
[2024-12-07 01:07] LABS: Base Excess -6 (-3-3); HCO3 20 mEq/L (20-26); O2 Saturation 100 % (91-98); PCO2 41 mmHg (32.0-48.0); PO2 197 mmHg (83-108)
[2024-12-07 01:10] LABS: Allen Test Performed/OK; Inspired Oxygen, FIO2 100 %; Puncture Site Right Radial
[2024-12-07] MEDS: Vancomycin Inj 2,000 MG in SODIUM CHLORIDE 0.9% 500 ML 500 ML 150 MG IV (02:15)
[2024-12-07] MEDS: RINGERS LACTATED 1000 ML 1,000 ML 999 ML IV ×2 (04:26→09:34)
[2024-12-07] MEDS: Norepinephrine/D5W 8mg/250ml 8 MG/250 ML BAG 32.149 MG IV (05:00)
[2024-12-07 05:59] LABS: Basophils % (Auto) 0 % (0-2.5); Eosinophils # (Auto) 0.1 Thou/mm3 (0.0-0.5); Eosinophils % (Auto) 1 % (0-10); Hematocrit 38.7 % (36.0-46.0); Hemoglobin 11.7 g/dL (12.0-16.0); Immature Granulocytes % (Auto) 1 % (0-0); Immature Granulocytes Auto 0.06 Thou/mm3 (0.00-0.00); Lymphocytes # (Auto) 0.7 Thou/mm3 (1.0-4.8); Lymphocytes % (Auto) 7 % (10-50); Mean Corpuscular HGB Conc 30.2 g/dl (31.0-37.0); Mean Corpuscular Hemoglobin 23.8 pg (25.0-35.0); Mean Corpuscular Volume 79 fL (80-100); Monocytes # (Auto) 0.4 Thou/mm3 (0.0-0.8); Monocytes % (Auto) 4 % (0-12); Neutrophils # (Auto) 8.5 Thou/mm3 (1.8-7.7); Neutrophils % (Auto) 87 % (37-80); Nucleated Red Blood Cell % 0 /100 WBC (0); Platelet Count 302 Thou/mm3 (140-440); Red Blood Count 4.91 Miln/mm3 (4.00-5.20); White Blood Count 9.8 Thou/mm3 (3.6-11.0)
--- NOTE | 2024-12-07 07:29 | XR_ITS ---
Examination: AP chest single view Technique one AP portable semiupright chest single view Exam date and time: December 07, 2024 0801 hours Comparison December 06, 2024 INDICATIONS: Hypoxic respiratory failure postintubation FINDINGS: Bilateral lung opacities consistent with pneumonia Tracheal tube tip 27 mm above dahlia Orogastric tube in the stomach Normal heart size IMPRESSION: Bilateral pneumonia Tracheal tube tip 27 mm above dahlia
[2024-12-07 07:48] LABS: Alanine Aminotransferase 79 U/L (10-49); Albumin, Serum 3.3 gm/dL (3.5-5.0); Albumin/Globulin Ratio 1.5 (1.2-2.2); Alkaline Phosphatase 152 U/L (46-116); Anion Gap 15 (7-16); Aspartate Amino Transferase 118 U/L (0-34); BUN/Creatinine Ratio 17 Ratio (12-20); Bilirubin,Total 0.6 mg/dL (0.3-1.2); Blood Urea Nitrogen 19 mg/dL (9-23); Calcium 7.3 mg/dL (8.3-10.6); Calcium (Corrected) 7.9 mg/dL (8.5-10.1); Carbon Dioxide 17.8 mMol/L (20.0-31.0); Chloride 117 mMol/L (98-107); Creatinine (Component) 1.1 mg/dL (0.6-1.3); Estimated Creatinine Clearance 77.9 mL/min (>60); Globulin 2.2 gm/dL (2.3-3.5); Glucose 127 mg/dL (74-106); Osmolality,Calculated 302 (275-295); Phosphorous 2.6 mg/dL (2.4-5.1); Potassium 2.9 mMol/L (3.4-5.1); Sodium 150 mMol/L (136-145); Total Protein 5.5 gm/dL (5.7-8.2); eGFR > 60 See Note
[2024-12-07 07:53] LABS: Base Excess -7 (-3-3); HCO3 18 mEq/L (20-26); Inspired Oxygen, FIO2 80 %; O2 Saturation 96 % (91-98); PCO2 34 mmHg (32.0-48.0); PO2 79 mmHg (83-108); pH, Arterial 7.34 (7.35-7.45)
[2024-12-07 07:59] LABS: Allen Test Performed/OK; Puncture Site Right Radial
[2024-12-07 08:45] LABS: Reflex Lactate? Y
[2024-12-07] MEDS: levETIRAcetam INJ 100 MG/ML VIAL 5ML 750 MG IVP ×2 (09:15→21:14)
[2024-12-07] MEDS: HEPARIN SOD INJ 5000 UNIT/ML VIAL SC ×2 (09:17→21:15)
[2024-12-07] MEDS: PANTOPRAZOLE INJ 40 MG VIAL IVP (09:17)
[2024-12-07 09:59] LABS: Lactic Acid, 3 HR 4.6 mMol/L (0.4-2.0)
--- NOTE | 2024-12-07 10:20 | RESP.EEG ---
EEG COMPLETED AT THIS TIME, DR Kruger MADE AWARE AND DR MCQUEEN AT BEDSIDE
--- NOTE | 2024-12-07 11:00 | PC.SS ---
Update: Patient?s spouse, Chas Laurent; confirmed designating patient?s sister, Aliza Whatley ; as patient?s medical surrogate decision maker.? Confirmation witnessed by PAPER PRODUCTS MACHINE OPERATOR, ICU resident, bedside nurse and continuous mining machine coal miner.?
--- NOTE | 2024-12-07 11:06 | PC.SS ---
COMPRESSOR STATION ENGINEER CHIEF conducted initial assessment with the patient?s sister, Aliza Whatley .? Patient is currently admitted to ICU on mechanical ventilation.? Patient resides at home with spouse.? Prior to admission the patient did not utilize DME to assist with ambulation.? Patient does not utilize home oxygen.? Patient was able to complete ADL?s independently.? Patient?s medical surrogate decision maker is sister, Aliza Whatley.? Patient not aligned with PCP.? Patient utilized [facility] for medication services.? health services manager will discuss discharge needs at an appropriate future time.? No further intervention required at this time, social secretary will be available to address any further concerns.? Next of Kin: Aliza Mckeon D/C Plan: Pending
--- NOTE | 2024-12-07 11:54 | ESPR_ITS ---
Documentation for date of: 12/07/24 Subjective Subjective Interval history: This is a 34yo F admitted to the ICU s/p cardiac arrest. Apparently she was found down at home with suspected down time of 30-40min. EMS was called and CPR initiated. ROSC was achieved after an additional 40min of downtime in the ER for a total down time of >1hr. It is unclear what happened at home however pt does have a h/o seizures. She was intubated and brought to the ICU. Overnight she has had a brisk urinary output. She has been hypothermic and has remained unresponsive off of sedation. She has been hypotensive and requires vasopressor support. Critical Care Note Critical care time (min.): 45 Exam Vital Signs Temp Pulse Resp BP Pulse Ox O2 Del Method FiO2 94.5 F L 93 28 H 119/97 H 93 L Mechanical Ventilation 60 12/07/24 04:00 12/07/24 10:17 12/07/24 07:00 12/07/24 10:17 12/07/24 10:17 12/07/24 06:15 12/07/24 10:17 Narrative Exam Gen- GCS 3T, nl body habitus, unresponsive to noxious stimuli HEENT- NC/AT, mucosa hydrated, sclera anicteric, pupils fixed and dilated, no corneal reflex, no cough, no gag Chest- coarse breath sounds, HRRR, no increase in WOB, does not overbreath the vent Abd- s/nt/bs+ Ext- no edema, no clubbing, no mottling, pulses palp, no mov to noxiuos stimuli Vent AC VC drips levo Physical Exam Completion Physical Exam Complete?: Yes Objective - Promotion Officer Labs 12/07/24 05:22 12/07/24 05:22 Labs: Laboratory Results - last 24 hr 12/06/24 12/06/24 12/06/24 18:30 19:19 20:04 WBC 11.2 H RBC 4.24 Hgb 10.0 L Hct 36.9 MCV 87 MCH 23.6 L MCHC 27.1 L RDW Std Deviation 49.1 H Plt Count 297 Neut % (Auto) 27 L Lymph % (Auto) 61 H [place] % (Auto) 4 Eos % (Auto) 2 Baso % (Auto) 0 Neut # (Auto) 3.0 Lymph # (Auto) 6.8 H [place] # (Auto) 0.4 Eos # (Auto) 0.2 Baso # (Auto) 0.1 Immature Gran # (Auto) 0.69 H Absolute Nucleated RBC 0.08 H Immature Gran % 6 H Nucleated RBC % 1 H PT 11.6 INR 1.1 APTT 45.3 H Puncture Site Right Brachial ABG pH 6.89 L* ABG pCO2 62 H ABG pO2 287 H ABG HCO3 12 L ABG O2 Saturation 100 H ABG Base Excess -21 L FiO2 99 Sodium 146 H Potassium 4.9 Chloride 106 Carbon Dioxide 11.8 L* Anion Gap 28 H BUN 8 L Creatinine 1.1 Estim Creat Clear Calc 77.6 eGFR > 60 BUN/Creatinine Ratio 7 L Glucose 371 H Calculated Osmolality 303 H Lactic Acid 16.0 H* Calcium 9.5 Corrected Calcium 9.6 Phosphorus 11.6 H Magnesium 3.2 H Total Bilirubin < 0.2 L AST 69 H ALT 44 Alkaline Phosphatase 103 Lactate Dehydrogenase 336 H Troponin I < 0.020 B-Natriuretic Peptide 89 Total Protein 6.6 Albumin 3.9 Globulin 2.7 Albumin/Globulin Ratio 1.4 Lipase 49 Procalcitonin 0.07 Ur Collection Type Clean Catch Urine Color Lt-Yellow Urine Clarity Hazy Urine pH 7.0 Ur Specific [place] 1.014 Urine Protein 3+ A Urine Glucose (UA) 2+ A Urine Ketones Trace Urine Blood 3+ A Urine Nitrite Negative Urine Bilirubin Negative Urine Urobilinogen (Auto) Negative Ur Leukocyte Esterase Negative Urine RBC 48 H Urine WBC 37 H Ur Squamous Epith Cells 5 Urine Bacteria None Hyaline Casts < 1 12/06/24 12/07/24 12/07/24 22:16 00:58 05:22 WBC 9.8 RBC 4.91 Hgb 11.7 L Hct 38.7 MCV 79 L MCH 23.8 L MCHC 30.2 L RDW Std Deviation 44.0 Plt Count 302 Neut % (Auto) 87 H Lymph % (Auto) 7 L [place] % (Auto) 4 Eos % (Auto) 1 Baso % (Auto) 0 Neut # (Auto) 8.5 H Lymph # (Auto) 0.7 L [place] # (Auto) 0.4 Eos # (Auto) 0.1 Baso # (Auto) 0.0 Immature Gran # (Auto) 0.06 H Absolute Nucleated RBC 0.00 Immature Gran % 1 H Nucleated RBC % 0 PT INR APTT Puncture Site Right Radial ABG pH 7.30 L D ABG pCO2 41 D ABG pO2 197 H D ABG HCO3 20 ABG O2 Saturation 100 H ABG Base Excess -6 L FiO2 100 Sodium 143 150 H Potassium 4.1 D 2.9 L D Chloride 110 H 117 H Carbon Dioxide 16.9 L 17.8 L Anion Gap 16 15 BUN 12 19 Creatinine 0.9 1.1 Estim Creat Clear Calc 94.9 77.9 eGFR > 60 > 60 BUN/Creatinine Ratio 13 17 Glucose 222 H D 127 H D Calculated Osmolality 291 302 H Lactic Acid 5.0 H* 6.0 H* Calcium 7.3 L D 7.3 L Corrected Calcium 7.4 L D 7.9 L Phosphorus 2.6 Magnesium 2.0 Total Bilirubin 0.4 0.6 AST 180 H 118 H ALT 96 H 79 H Alkaline Phosphatase 214 H D 152 H D Lactate Dehydrogenase Troponin I B-Natriuretic Peptide Total Protein 6.5 5.5 L Albumin 3.9 3.3 L D Globulin 2.6 2.2 L Albumin/Globulin Ratio 1.5 1.5 Lipase Procalcitonin Ur Collection Type Urine Color Urine Clarity Urine pH Ur Specific [place] Urine Protein Urine Glucose (UA) Urine Ketones Urine Blood Urine Nitrite Urine Bilirubin Urine Urobilinogen (Auto) Ur Leukocyte Esterase Urine RBC Urine WBC Ur Squamous Epith Cells Urine Bacteria Hyaline Casts 12/07/24 12/07/24 07:43 09:37 WBC RBC Hgb Hct MCV MCH MCHC RDW Std Deviation Plt Count Neut % (Auto) Lymph % (Auto) [place] % (Auto) Eos % (Auto) Baso % (Auto) Neut # (Auto) Lymph # (Auto) [place] # (Auto) Eos # (Auto) Baso # (Auto) Immature Gran # (Auto) Absolute Nucleated RBC Immature Gran % Nucleated RBC % PT INR APTT Puncture Site Right Radial ABG pH 7.34 L ABG pCO2 34 ABG pO2 79 L D ABG HCO3 18 L ABG O2 Saturation 96 ABG Base Excess -7 L FiO2 80 Sodium Potassium Chloride Carbon Dioxide Anion Gap BUN Creatinine Estim Creat Clear Calc eGFR BUN/Creatinine Ratio Glucose Calculated Osmolality Lactic Acid 4.6 H* Calcium Corrected Calcium Phosphorus Magnesium Total Bilirubin AST ALT Alkaline Phosphatase Lactate Dehydrogenase Troponin I B-Natriuretic Peptide Total Protein Albumin Globulin Albumin/Globulin Ratio Lipase Procalcitonin Ur Collection Type Urine Color Urine Clarity Urine pH Ur Specific [place] Urine Protein Urine Glucose (UA) Urine Ketones Urine Blood Urine Nitrite Urine Bilirubin Urine Urobilinogen (Auto) Ur Leukocyte Esterase Urine RBC Urine WBC Ur Squamous Epith Cells Urine Bacteria Hyaline Casts Assessment & Plan Additional Plan Additional Plan: In summary this is a 34yo F s/p cardiac arrest a/p [employer]OR Anoxic Encephalopathy which has progressed to apparent brain . once pt is warm will need formal brain assessment. HCT shows diffuse cerebral edema. maintain current Na and do not correct. EEG did not show activity on prelim read CV Shock- s/p cardiac arrest with both hypovolemic and distributive components. she has a brisk UOP which is suspicious for developement of DI and needs aggressive volume repletion. Cheeta placed for hemodynamics and bedside echo done. No evidence of cardiogenic or obstructive etiology. on broad spectrum abx. will need TLC and A line for further assessment. on levophed with variable requirements Resp Acute hypoxic resp failure- intubated and on MV, fu with ABG and CXR Aspiration- on abx, CXR shows b/l infiltrate Renal HypoK- replete IV HyperNa- maintain current Na in light of her cerebral edema Hyperchloremic acidosis- 2/2 saline pt has received Lactic Acidosis- 2/2 cardiac arrest, trending back down HypoCa- replete IV GI Transaminitis- 2/2 hypotension and shock Endo ? DI- pt with brisk UOP, can check Uosm, may require desmopressin Heme Anemia- mild, no active bleeding DVT proph- lovenox ID on abx for aspiration case d/w ICU team d/w neuro will need GOC d/w family regarding code status labs, imaging, records reviewed ~45ccmin required for eval, exam, review, intervention, discussion and formulation of POC for this critically ill pt at high risk for ongoing decompensation Provider Notation Provider Notation: Although this document has been carefully reviewed, there may still be some phonetic and other typographical errors. These errors are purely grammatical due to imperfections in the software program and should not be construed in any way to compromise the substance of the patient's medical care during this visit. Thank you for the opportunity and privilege in assisting you with this patient's care and management.
[2024-12-07] MEDS: SODIUM CHLORIDE 0.9% 1000 ML 1,000 ML 999 ML IV (11:58)
--- NOTE | 2024-12-07 12:02 | PC.NURSE ---
Zohaib from Organ donation called to get update on patient, report given to him. He stated that patient is suitable for organ donation.
[2024-12-07] MEDS: Norepinephrine/D5W 8mg/250ml 8 MG/250 ML BAG 13.778 MG IV (13:46)
[2024-12-07 14:02] LABS: Anion Gap 15 (7-16); BUN/Creatinine Ratio 24 Ratio (12-20); Blood Urea Nitrogen 19 mg/dL (9-23); Calcium 7.3 mg/dL (8.3-10.6); Carbon Dioxide 18.4 mMol/L (20.0-31.0); Chloride 125 mMol/L (98-107); Creatinine (Component) 0.8 mg/dL (0.6-1.3); Estimated Creatinine Clearance 107.2 mL/min (>60); Glucose 169 mg/dL (74-106); Osmolality,Calculated 319 (275-295); Sodium 158 mMol/L (136-145); eGFR > 60 See Note
[2024-12-07 14:05] LABS: Potassium 2.6 mMol/L (3.4-5.1)
--- NOTE | 2024-12-07 14:54 | XR_ITS ---
Examination: AP chest single view TECHNIQUE: AP portable supine chest single view Exam date and time: December 07, 2024 1504 hours Comparison December 07, 2024 0801 hours INDICATIONS: Hypoxic respiratory failure, postintubation FINDINGS: Endotracheal tube tip 4 cm above dahlia Right internal jugular central line tip SVC no pneumothorax Bilateral pneumonia again noted Normal heart size IMPRESSION: Interval right internal jugular central line tip in satisfactory position, no pneumothorax
[2024-12-07 15:10] LABS: Path Review Blood Smear Sent to Pathologist
--- NOTE | 2024-12-07 15:14 | PD.RESPROC ---
Procedures Procedure Date / Time 12/07/24 1514 Central Line Placement Right IJ: Indication(s): poor, or inadequate peripheral venous access Informed consent obtained: obtained from surrogate decision maker Time out done, and the following verified: correct patient, side and site, procedure, patient position and implants and/or equipment Patient placed on monitor/pulse ox: Yes Hand Hygiene: scrub, soap & water and alcohol-based hand rub Max Sterile Barrier Techniques used: cap, mask, sterile gown, sterile gloves and sterile full body drape Central line prep: Chlorhexidine scrub and sterile drapes applied Ultrasound used for placement: Yes Sterile Technique if Ultrasound used, including sterile gel: yes Central line lumen inserted: triple Post procedure: sutured in place, good blood return, all ports aspirated, flushed, capped and sterile dressing applied Post procedure x-ray: tip of catheter in good position and no pneumothorax seen Patient tolerated procedure: well and no complications EBL(ml): 3 Procedure comment: Procedure performed under the guidance and care with my senior resident Dr. Hernandez, PGY-4, and attending, Dr. Morse. Sujata Blanchard, PGY-2 Attending note: I was present for the procedure and able to assist as needed
[2024-12-07] MEDS: POTASSIUM CHL 20 mEq IVPB 20 MEQ/100 ML BAG 50 MEQ IV ×2 (15:24→17:17)
[2024-12-07] MEDS: DESMOPRESSIN ACETATE 4 MCG/ML VIAL IV (15:38)
[2024-12-07] MEDS: POTASSIUM CHLORIDE 10% 20 MEQ/15 ML UDC 40 MEQ NG (15:38)
--- NOTE | 2024-12-07 18:06 | PD.RESPRO ---
Documentation for date of: 12/07/24 Subjective Subjective Interval history: Patient is a 34-year-old female with past medical history of epilepsy and urticaria that presented to the ED by EMS after being found down by at home. Patient came in as a CODE BLUE and ROSC was achieved 40 minutes after being found down. Per family patient was last well-known at around 4:30 PM. Per one of the kids heard pain and found to mom on the floor around 5, got home around 5:30 PM and patient was found without a pulse. Family denies any signs of seizure-like activity, and last seizure was about 2 months ago. Patient is seen by Dr Blanchard. Per family patient recently had a cold but was otherwise healthy. Patient is otherwise healthy and had no other complaints prior to event. Unable to obtain ROS as patient is currently unresponsive and on ventilation. 12/07/2024: Patient seen and examined at bedside. Patient currently hypothermic at 94.1 ?F, unresponsive and not on sedation. Patient has been hypotensive, requiring vasopressor support. Overnight, patient had a total urine output of 1.6 L. From 7-11 o'clock this morning patient had about 300 to 400 cc output per hour. On bedside, patient presented with no corneal reflex, fixed pupils at 6 mm and dilated, nonreactive to light, no cough or gag reflex, not responsive to painful stimuli or voice. EEG was ordered and showed no brain activity. Per family at bedside, unsure what made patient unresponsive however daughter heard a sound, and found patient face down. Patient was down for around 30 to 40 minutes, and unsure when CPR was started, however shortly after ED arrival, patient obtained ROSC, around 30 to 40 minutes later. Patient's family did not witness any seizure, however believes that she could have had a seizure, because patient had a prior incident where she was found facedown. Exam Vital Signs Temp Pulse Resp BP Pulse Ox O2 Del Method FiO2 95.4 F L 104 H 28 H 97/70 95 Mechanical Ventilation 60 12/07/24 16:00 12/07/24 17:00 12/07/24 17:00 12/07/24 17:00 12/07/24 17:00 12/07/24 06:15 12/07/24 16:00 Narrative Exam GENERAL: Young female, healthy, GCS 3 T, intubated and on mechanical ventilation. Nonreactive to painful stimuli. Unresponsive. HEENT: NC/AT, moist mucous membranes, sclera anicteric, pupils fixed at 6 mm and dilated, no corneal reflex no cough no gag reflex HEART: Regular rate and rhythm, no murmurs, rubs or gallops. LUNGS: Rhonchi on auscultation both lungs. Mechanically ventilated, no overbreathing over the vent ABDOMEN: Obese. Soft. No grimacing on palpation. Sounds heard EXTREMITIES: No edema, clubbing, mottling pedal pulses felt bilaterally, with no movement to noxious stimuli SKIN: Cold and dry, no jaundice or rashes noted except for cut on her digits and nails and 2 identical pinpoint wounds below her bilateral knees. NEURO: GCS of 3 with no motor response or eye-opening, but unable to obtain verbal response as she is intubated. Pupils nonreactive?fixed and dilated. Does not react to painful stimuli. Objective Labs 12/08/24 04:50 12/08/24 08:48 Labs: Laboratory Results - last 24 hr 12/06/24 12/06/24 12/06/24 18:30 19:19 20:04 WBC 11.2 H RBC 4.24 Hgb 10.0 L Hct 36.9 MCV 87 MCH 23.6 L MCHC 27.1 L RDW Std Deviation 49.1 H Plt Count 297 Neut % (Auto) 27 L Lymph % (Auto) 61 H [place] % (Auto) 4 Eos % (Auto) 2 Baso % (Auto) 0 Neut # (Auto) 3.0 Lymph # (Auto) 6.8 H [place] # (Auto) 0.4 Eos # (Auto) 0.2 Baso # (Auto) 0.1 Immature Gran # (Auto) 0.69 H Absolute Nucleated RBC 0.08 H Immature Gran % 6 H Nucleated RBC % 1 H Smear Path Review Sent to Pathologist PT 11.6 INR 1.1 APTT 45.3 H Puncture Site Right Brachial ABG pH 6.89 L* ABG pCO2 62 H ABG pO2 287 H ABG HCO3 12 L ABG O2 Saturation 100 H ABG Base Excess -21 L FiO2 99 Sodium 146 H Potassium 4.9 Chloride 106 Carbon Dioxide 11.8 L* Anion Gap 28 H BUN 8 L Creatinine 1.1 Estim Creat Clear Calc 77.6 eGFR > 60 BUN/Creatinine Ratio 7 L Glucose 371 H Calculated Osmolality 303 H Lactic Acid 16.0 H* Calcium 9.5 Corrected Calcium 9.6 Phosphorus 11.6 H Magnesium 3.2 H Total Bilirubin < 0.2 L AST 69 H ALT 44 Alkaline Phosphatase 103 Lactate Dehydrogenase 336 H Troponin I < 0.020 B-Natriuretic Peptide 89 Total Protein 6.6 Albumin 3.9 Globulin 2.7 Albumin/Globulin Ratio 1.4 Lipase 49 Procalcitonin 0.07 Ur Collection Type Clean Catch Urine Color Lt-Yellow Urine Clarity Hazy Urine pH 7.0 Ur Specific [place] 1.014 Urine Protein 3+ A Urine Glucose (UA) 2+ A Urine Ketones Trace Urine Blood 3+ A Urine Nitrite Negative Urine Bilirubin Negative Urine Urobilinogen (Auto) Negative Ur Leukocyte Esterase Negative Urine RBC 48 H Urine WBC 37 H Ur Squamous Epith Cells 5 Urine Bacteria None Hyaline Casts < 1 12/06/24 12/07/24 12/07/24 22:16 00:58 05:22 WBC 9.8 RBC 4.91 Hgb 11.7 L Hct 38.7 MCV 79 L MCH 23.8 L MCHC 30.2 L RDW Std Deviation 44.0 Plt Count 302 Neut % (Auto) 87 H Lymph % (Auto) 7 L [place] % (Auto) 4 Eos % (Auto) 1 Baso % (Auto) 0 Neut # (Auto) 8.5 H Lymph # (Auto) 0.7 L [place] # (Auto) 0.4 Eos # (Auto) 0.1 Baso # (Auto) 0.0 Immature Gran # (Auto) 0.06 H Absolute Nucleated RBC 0.00 Immature Gran % 1 H Nucleated RBC % 0 Smear Path Review PT INR APTT Puncture Site Right Radial ABG pH 7.30 L D ABG pCO2 41 D ABG pO2 197 H D ABG HCO3 20 ABG O2 Saturation 100 H ABG Base Excess -6 L FiO2 100 Sodium 143 150 H Potassium 4.1 D 2.9 L D Chloride 110 H 117 H Carbon Dioxide 16.9 L 17.8 L Anion Gap 16 15 BUN 12 19 Creatinine 0.9 1.1 Estim Creat Clear Calc 94.9 77.9 eGFR > 60 > 60 BUN/Creatinine Ratio 13 17 Glucose 222 H D 127 H D Calculated Osmolality 291 302 H Lactic Acid 5.0 H* 6.0 H* Calcium 7.3 L D 7.3 L Corrected Calcium 7.4 L D 7.9 L Phosphorus 2.6 Magnesium 2.0 Total Bilirubin 0.4 0.6 AST 180 H 118 H ALT 96 H 79 H Alkaline Phosphatase 214 H D 152 H D Lactate Dehydrogenase Troponin I B-Natriuretic Peptide Total Protein 6.5 5.5 L Albumin 3.9 3.3 L D Globulin 2.6 2.2 L Albumin/Globulin Ratio 1.5 1.5 Lipase Procalcitonin Ur Collection Type Urine Color Urine Clarity Urine pH Ur Specific [place] Urine Protein Urine Glucose (UA) Urine Ketones Urine Blood Urine Nitrite Urine Bilirubin Urine Urobilinogen (Auto) Ur Leukocyte Esterase Urine RBC Urine WBC Ur Squamous Epith Cells Urine Bacteria Hyaline Casts 12/07/24 12/07/24 12/07/24 07:43 09:37 12:40 WBC RBC Hgb Hct MCV MCH MCHC RDW Std Deviation Plt Count Neut % (Auto) Lymph % (Auto) [place] % (Auto) Eos % (Auto) Baso % (Auto) Neut # (Auto) Lymph # (Auto) [place] # (Auto) Eos # (Auto) Baso # (Auto) Immature Gran # (Auto) Absolute Nucleated RBC Immature Gran % Nucleated RBC % Smear Path Review PT INR APTT Puncture Site Right Radial ABG pH 7.34 L ABG pCO2 34 ABG pO2 79 L D ABG HCO3 18 L ABG O2 Saturation 96 ABG Base Excess -7 L FiO2 80 Sodium 158 H Potassium 2.6 L* Chloride 125 H* Carbon Dioxide 18.4 L Anion Gap 15 BUN 19 Creatinine 0.8 Estim Creat Clear Calc 107.2 eGFR > 60 BUN/Creatinine Ratio 24 H Glucose 169 H Calculated Osmolality 319 H Lactic Acid 4.6 H* Calcium 7.3 L Corrected Calcium Phosphorus Magnesium Total Bilirubin AST ALT Alkaline Phosphatase Lactate Dehydrogenase Troponin I B-Natriuretic Peptide Total Protein Albumin Globulin Albumin/Globulin Ratio Lipase Procalcitonin Ur Collection Type Urine Color Urine Clarity Urine pH Ur Specific [place] Urine Protein Urine Glucose (UA) Urine Ketones Urine Blood Urine Nitrite Urine Bilirubin Urine Urobilinogen (Auto) Ur Leukocyte Esterase Urine RBC Urine WBC Ur Squamous Epith Cells Urine Bacteria Hyaline Casts ABG Interpretation ABG results: 12/06/24 12/07/24 12/07/24 19:19 00:58 07:43 ABG pH 6.89 L* 7.30 L D 7.34 L ABG pCO2 62 H 41 D 34 ABG pO2 287 H 197 H D 79 L D ABG HCO3 12 L 20 18 L ABG O2 Saturation 100 H 100 H 96 ABG Base Excess -21 L -6 L -7 L Quality Measures Quality Measures none Assessment & Plan Assessment Current Active Medications: Generic Name Dose Route Start Last Admin Trade Name Freq PRN Reason Stop Dose Admin Acetaminophen 650 mg 12/06/24 22:43 Acetaminophen Supp 650 Mg Supp NV 01/05/25 22:42 Q6HR PRN [id number] Heparin Sodium (Porcine) 5,000 unit 12/07/24 09:00 12/07/24 09:17 Heparin Sod Inj 5000 Unit/Ml Vial SC 12/21/24 08:59 5,000 unit Q12HR SOULEYMANE Administration Norepinephrine/Dextrose 8 mg in 250 mls @ 7.654 mls/hr 12/06/24 19:05 12/07/24 17:00 Levophed In D5w 8mg/250ml IV 01/05/25 19:04 0.07 mcg/kg/min .Q24H PRN 10.716 mls/hr PER PROTOCOL Titration Protocol 0.05 MCG/KG/MIN Piperacillin/Tazobactam/Dextrose 3.375 gm in 50 mls @ 12.5 mls/hr 12/08/24 06:00 Zosyn IV 12/15/24 05:59 Q8HR SOULEYMANE Vancomycin HCl 750 mg/ Sodium 250 mls @ 200 mls/hr 12/07/24 22:00 Chloride IV 12/14/24 21:59 BID@1000,2200 SOULEYMANE Protocol Potassium Chloride 20 meq in 100 mls @ 50 mls/hr 12/07/24 14:53 12/07/24 17:17 Kcl Ivpb IV 12/07/24 18:52 50 mls/hr Q2H SOULEYMANE Administration Levetiracetam 750 mg 12/07/24 09:00 12/07/24 09:15 Levetiracetam Inj 100 Mg/Ml Vial 5ml IVP 01/06/25 08:59 750 mg Q12HR SOULEYMANE Administration Ondansetron HCl 4 mg 12/06/24 22:43 Ondansetron Inj 2 Mg/Ml Inj 2 Ml IV 01/05/25 22:42 Q6H PRN NAUSEA OR VOMITING Protocol Pantoprazole Sodium 40 mg 12/07/24 09:00 12/07/24 09:17 Pantoprazole Inj 40 Mg Vial IVP 01/06/25 08:59 40 mg QDAY SOULEYMANE Administration Pharmacy Consult 1 each 12/07/24 09:00 Vancomycin Pharmacy To Dose 1 Each Each IV 01/06/25 08:59 QDAY PRN PROTOCOL Plan Patient is a 34-year-old female with past medical history of epilepsy and urticaria that presented to the ED by EMS after being found down by at home. Patient admitted to ICU for further management of s/p cardiac arrest and shock requiring vasopressor support. NEURO #Severe Anoxic Encephalopathy #Cerebral Edema Patient presented with a GCC of 3T, and no response to CN activity. EEG ordered and showed no brain activity per prelim read. Head CT showed diffuse cerebral edema -pending final read for EEG -sleep apnea test in AM -formal brain assessment after patient is euthermic, at least 98.6F -Continue to monitor for Fernanda triad reflex to assess for worsening cerebral herniation normal -Neurology following, appreciate recs -Family updated on current prognosis -Donor network contacted #Hx of Seizure disorder -Continue with Keppra 750mg BID, home dose CARDIO #Undifferentiated shock #S/P cardiac arrest Patient most likley had a breakthrough seizure that lead to unresponsiveness and cardiac arrest. Troponin within normal limits and EKG shows normal sinus rhythm, rate 89, no LAD, QTc 462, nonspecific ST changes Bedside echo showed collapsible IVC, more than 50% collapsibility with hyperdynamic LV contractility, however d/t extreme polyuria, patient has both hypovolemic and distributive components Less likely to be cardiogenic or obstructive -On IV Vanc and Zosyn -A-line placed for further invasive BP and central line placed for variable levophed requirements -Titrate pressors to MAP > 65 -Echo ordered, and pending read -Goal to keep patient euthermic PULM #AHHRF #Aspiration PNA vs Pneumonitis vs CAP DDx: most likely in the setting of hypoxia and hypoxemia while found unresponsive vs aspiration pneumonitis Patient found to have fluid and food when intubating; ABG on arrival: pH 6.89, pCO2 62, pO2 287, bicarb 12 Patient intubated upon ED arrival, and confirmed with CXR for placement. -Continue to monitor with ABG, and adjust vent settings accordingly -CXR showed b/l infiltrates, will continue with IV Abx, Vanc and Zosyn -Pending Sputum Cultures GI/FEN #Transaminitis in the setting of hypotension and shock #Distended fluid loops in [place] DDx: in the setting of umbilial hernia vs ileus vs SBO Unsure when patient had last BM RENAL #Lactic Acidosis #AGMA in the setting of cardiacpulmonary arrest Most liklely lactic acidosis type A secondary to shock LA was 16 on admission, with a AG of 18, pH 6.89 -Continue to trend LA -Monitor CMP Q4HR -F/u with ABG #Hyperphosphatemia #Hypermagnesemia #Hypocalcemia #Hypernatremia #Hypokalemia Replete electrolytes as needed -Gave Desmopressin 4mg x 1 which helped dramatically with decrease in urine ouput per hour and maintain her Na, which we will keep permissively high d/t her cerebral edema #GI prophylaxis -start daily PPI HEME/ONC #Anemia-stable Patient's MCV 79. H&H stable ENDO #?DI -Patient has more than 400cc output for more than three hours reported -In lieu of her hypernatremia, will give a x 1 desmopressin -Continue to monitor UO with [place] ID #Aspiration Pneumonia #Sepsis Imaging shows bilateral opacities consistent with aspiration pneumonia Sputum, blood, and urine cultures ordered qSOFA 3 points indicating 3-14 fold increase in in-hospital mortality Tylenol as needed for fever, recieved 30cc/kg Fluid resuscitation in the ED -Continue with IV Abx -F/u cultures MSK #Acute 3rd Left rib Fracture #Fracture of sternum CT C/A/P: Acute fracture left third rib anteriorly and nondisplaced fracture body of sternum Cervical spine CT: No acute cervical fracture -Patient currently not sedated, but will give pain meds as needed Health Maintenance: DVT prophylaxis: Heparin SC Diet: NPO [place]: Yes Lines: PIV, Central, A-line Drips: Levophed Vent: Tidal volume CODE STATUS: Full code Disposition: Admitted to ICU for s/p cardiac arrest and AMS requiring intubation and shock for vasopressor support. Patient's plan and care discussed with my attending, Dr. Lito Blanchard MD PGY-2
--- NOTE | 2024-12-07 18:18 | PD.RESPROC ---
Procedures Procedure Date / Time 12/07/24 1818 Arterial Line Indication(s): other (hemodynamic instability) Informed consent obtained: obtained from surrogate decision maker Time out done, and the following verified: correct patient, side and site, procedure, patient position and implants and/or equipment Size (Gauge): 20 Technique used: direct puncture technique Post-Procedure: line sutured into place Patient tolerated procedure: well and no complications EBL(ml): 1 Complications: none Site: right and radial Procedure comment: Arterial waveform seen. Procedure done by Maryam Hernandez, PGY4 residential solar sales consultant. Dr. Morse was immediately available throughout the procedure. Attending note: I was present for the procedure and able to assist as needed
[2024-12-07 18:36] LABS: Base Excess, Venous -6 (-3-3); Lactate (Lactic Acid) 4.5 mMol/L (0.4-2.0); O2 Saturation, Venous 90 % (96-97); PCO2, Venous 27 mmHg (36-56); PO2, Venous 53 mmHg (15-58); pH, Venous 7.42 (7.33-7.66)
[2024-12-07 19:13] LABS: Anion Gap 13 (7-16); BUN/Creatinine Ratio 23 Ratio (12-20); Blood Urea Nitrogen 18 mg/dL (9-23); Calcium 7.9 mg/dL (8.3-10.6); Carbon Dioxide 19.1 mMol/L (20.0-31.0); Chloride 128 mMol/L (98-107); Creatinine (Component) 0.8 mg/dL (0.6-1.3); Estimated Creatinine Clearance 107.2 mL/min (>60); Glucose 149 mg/dL (74-106); Osmolality,Calculated 321 (275-295); Potassium 3.8 mMol/L (3.4-5.1); Sodium 160 mMol/L (136-145); eGFR > 60 See Note
[2024-12-07 20:28] LABS: Base Excess -5 (-3-3); HCO3 19 mEq/L (20-26); Inspired Oxygen, FIO2 60 %; O2 Saturation 94 % (91-98); PCO2 33 mmHg (32.0-48.0); PO2 68 mmHg (83-108); pH, Arterial 7.38 (7.35-7.45)
[2024-12-07 20:34] LABS: Allen Test Not Performed; Puncture Site Arterial Line
[2024-12-07] MEDS: Vancomycin Inj 750 MG in SODIUM CHLORIDE 0.9% 250 ML 250 ML 200 MG IV (21:15)
[2024-12-07 21:32] LABS: Reflex Lactate? Y
[2024-12-07] MEDS: POTASSIUM CHLORIDE 10% 20 MEQ/15 ML UDC 40 MEQ GT (22:28)
[2024-12-07 22:33] LABS: Anion Gap 17 (7-16); BUN/Creatinine Ratio 20 Ratio (12-20); Blood Urea Nitrogen 16 mg/dL (9-23); Calcium 8.1 mg/dL (8.3-10.6); Carbon Dioxide 19.2 mMol/L (20.0-31.0); Chloride 129 mMol/L (98-107); Creatinine (Component) 0.8 mg/dL (0.6-1.3); Estimated Creatinine Clearance 107.2 mL/min (>60); Glucose 146 mg/dL (74-106); Osmolality,Calculated 330 (275-295); Potassium 3.5 mMol/L (3.4-5.1); eGFR > 60 See Note
[2024-12-07 22:37] LABS: Sodium 165 mMol/L (136-145)
--- NOTE | 2024-12-07 22:46 | ECHO_ITS ---
Transthoracic Echo Report Ht (in): 66 Wt (lb): 180 Exam Location: Echo Lab Status: Inpatient Counter Hand: HUGO Rowe^^^^ Indications: Procedure Performed: ASE/ACC Appropriateness Score: 0 BP: 97 / 75 HR: Technical Quality: Very technically difficult study MEASUREMENTS (Male / Female) Normal Values 2D ECHO LV Diastolic Diameter PLAX 2.1 cm 4.2 - 5.9 / 3.9 - 5.3 cm LV Systolic Diameter PLAX 2.5 cm IVS Diastolic Thickness 1.5 cm 0.6 - 1.0 / 0.6 - 0.9 cm LVPW Diastolic Thickness 2.2 cm 0.6 - 1.0 / 0.6 - 0.9 cm LV Relative Wall Thickness 1.8 RV Internal Dim ED PLAX 1.5 cm LVOT Diameter 1.9 cm Aortic Root Diameter 2.9 cm Ascending Aorta Diameter 2.5 cm DOPPLER TR Peak Velocity 186.0 cm/s TR Peak Gradient 13.8 mmHg FINDINGS Left Ventricle The left ventricular systolic function is normal. Right Ventricle The right ventricle not well visualized. Left Atrium Left atrium not well visualized. Right Atrium Right atrium is not well visualized. Atrial Septum The interatrial septum not well visualized. Aorta The aortic root and proximal ascending aorta are not well visualized. Mitral Valve The mitral valve is not well visualized. Aortic Valve The aortic valve is not well visualized. Tricuspid Valve The tricuspid valve is not well visualized. Pulmonic Valve The pulmonic valve is not well visualized. Vessels Inferior vena cava not well visualized. Pericardium There is no pericardial effusion. CONCLUSIONS Indication: Post cardiac arrest Very poor quality images. Suboptimal views and most structures not well visualized. Severely reduced LV function with an EF < 30%. Possible normal RV systolic function. Cannot comment on chamber sizes, or valvular pathology Consider JESSIE if clinically indicated due to very poor TTE images Glenn Davis (Electronically Signed) Final Date: 08 December 2024 03:51
[2024-12-07] MEDS: DEXTROSE 5%-WATER 500 ML 125 ML IV (22:58)
--- NOTE | 2024-12-07 23:59 | ESPR_ITS ---
Documentation for date of: 12/07/24 Subjective Subjective Interval history: Patient was seen in ICU today at the bedside. No changes reported since admission. Remains unresponsive with a GCS of 3 with absent brainstem reflexes. Remains intubated and on mechanical ventilatory support Exam - Neurology Vital Signs Temp Pulse Resp BP Pulse Ox O2 Del Method FiO2 99.5 F 141 H 15 116/87 H 96 Mechanical Ventilation 60 12/07/24 20:00 12/07/24 23:00 12/07/24 23:00 12/07/24 23:00 12/07/24 23:00 12/07/24 06:15 12/07/24 22:30 Narrative Exam GENERAL APPEARANCE: Well hydrated, well-nourished intubated and on mechanical ventilatory support HEENT: Normocephalic, atraumatic, Pupils: Dilated, not reactive NECK: Supple, no JVD or bruits. CARDIOVASULAR: Heart: S1, S2 heard, regular without S3-S4 or murmur no rubs or gallops. LUNGS/CHEST: Clear to auscultation bilaterally. No rails, rhonchi, or wheezing. Normal inspection. ABDOMEN: Soft, nontender, with normal bowel sounds. No pulsatile masses. No rebound, rigidity, or guarding. Normal inspection and palpation. EXTREMITIES: Normal inspection and palpation. No edema, clubbing or cyanosis. SKIN: Warm and dry without rashes. Normal inspection. MUSCULOSKELETAL: No cervical, thoracic, lumbar or midline bony tenderness. Normal inspection. NEURO: GCS: 3, absent brainstem responses including pupillary response, doll's eye, corneal reflex, cough reflex and absent voluntary respiration be on the ventilator set up rate PSYCHIATRIC: Limited Objective Labs 12/07/24 05:22 12/07/24 21:30 Labs: Laboratory Results - last 24 hr 12/06/24 12/07/24 12/07/24 18:30 00:58 05:22 WBC 9.8 RBC 4.91 Hgb 11.7 L Hct 38.7 MCV 79 L MCH 23.8 L MCHC 30.2 L RDW Std Deviation 44.0 Plt Count 302 Neut % (Auto) 87 H Lymph % (Auto) 7 L [place] % (Auto) 4 Eos % (Auto) 1 Baso % (Auto) 0 Neut # (Auto) 8.5 H Lymph # (Auto) 0.7 L [place] # (Auto) 0.4 Eos # (Auto) 0.1 Baso # (Auto) 0.0 Immature Gran # (Auto) 0.06 H Absolute Nucleated RBC 0.00 Immature Gran % 1 H Nucleated RBC % 0 Smear Path Review Sent to Pathologist Puncture Site Right Radial ABG pH 7.30 L D ABG pCO2 41 D ABG pO2 197 H D ABG HCO3 20 ABG O2 Saturation 100 H ABG Base Excess -6 L VBG pH VBG pCO2 VBG pO2 VBG O2 Sat (Michelle) VBG Base Excess FiO2 100 Sodium 150 H Potassium 2.9 L D Chloride 117 H Carbon Dioxide 17.8 L Anion Gap 15 BUN 19 Creatinine 1.1 Estim Creat Clear Calc 77.9 eGFR > 60 BUN/Creatinine Ratio 17 Glucose 127 H D Calculated Osmolality 302 H Lactic Acid 6.0 H* Calcium 7.3 L Corrected Calcium 7.9 L Phosphorus 2.6 Magnesium 2.0 Total Bilirubin 0.6 AST 118 H ALT 79 H Alkaline Phosphatase 152 H D Total Protein 5.5 L Albumin 3.3 L D Globulin 2.2 L Albumin/Globulin Ratio 1.5 12/07/24 12/07/24 12/07/24 07:43 09:37 12:40 WBC RBC Hgb Hct MCV MCH MCHC RDW Std Deviation Plt Count Neut % (Auto) Lymph % (Auto) [place] % (Auto) Eos % (Auto) Baso % (Auto) Neut # (Auto) Lymph # (Auto) [place] # (Auto) Eos # (Auto) Baso # (Auto) Immature Gran # (Auto) Absolute Nucleated RBC Immature Gran % Nucleated RBC % Smear Path Review Puncture Site Right Radial ABG pH 7.34 L ABG pCO2 34 ABG pO2 79 L D ABG HCO3 18 L ABG O2 Saturation 96 ABG Base Excess -7 L VBG pH VBG pCO2 VBG pO2 VBG O2 Sat (Michelle) VBG Base Excess FiO2 80 Sodium 158 H Potassium 2.6 L* Chloride 125 H* Carbon Dioxide 18.4 L Anion Gap 15 BUN 19 Creatinine 0.8 Estim Creat Clear Calc 107.2 eGFR > 60 BUN/Creatinine Ratio 24 H Glucose 169 H Calculated Osmolality 319 H Lactic Acid 4.6 H* Calcium 7.3 L Corrected Calcium Phosphorus Magnesium Total Bilirubin AST ALT Alkaline Phosphatase Total Protein Albumin Globulin Albumin/Globulin Ratio 12/07/24 12/07/24 12/07/24 18:26 20:15 21:30 WBC RBC Hgb Hct MCV MCH MCHC RDW Std Deviation Plt Count Neut % (Auto) Lymph % (Auto) [place] % (Auto) Eos % (Auto) Baso % (Auto) Neut # (Auto) Lymph # (Auto) [place] # (Auto) Eos # (Auto) Baso # (Auto) Immature Gran # (Auto) Absolute Nucleated RBC Immature Gran % Nucleated RBC % Smear Path Review Puncture Site Arterial Line ABG pH 7.38 ABG pCO2 33 ABG pO2 68 L ABG HCO3 19 L ABG O2 Saturation 94 ABG Base Excess -5 L VBG pH 7.42 VBG pCO2 27 L VBG pO2 53 VBG O2 Sat (Michelle) 90 L VBG Base Excess -6 L FiO2 60 Sodium 160 H 165 H* Potassium 3.8 D 3.5 Chloride 128 H* 129 H* Carbon Dioxide 19.1 L 19.2 L Anion Gap 13 17 H BUN 18 16 Creatinine 0.8 0.8 Estim Creat Clear Calc 107.2 107.2 eGFR > 60 > 60 BUN/Creatinine Ratio 23 H 20 Glucose 149 H 146 H Calculated Osmolality 321 H 330 H Lactic Acid 4.5 H* 5.0 H* Calcium 7.9 L 8.1 L Corrected Calcium Phosphorus Magnesium Total Bilirubin AST ALT Alkaline Phosphatase Total Protein Albumin Globulin Albumin/Globulin Ratio ABG Interpretation ABG results: 12/06/24 12/07/24 12/07/24 19:19 00:58 07:43 ABG pH 6.89 L* 7.30 L D 7.34 L ABG pCO2 62 H 41 D 34 ABG pO2 287 H 197 H D 79 L D ABG HCO3 12 L 20 18 L ABG O2 Saturation 100 H 100 H 96 ABG Base Excess -21 L -6 L -7 L VBG pH VBG pCO2 VBG pO2 VBG Base Excess 12/07/24 12/07/24 18:26 20:15 ABG pH 7.38 ABG pCO2 33 ABG pO2 68 L ABG HCO3 19 L ABG O2 Saturation 94 ABG Base Excess -5 L VBG pH 7.42 VBG pCO2 27 L VBG pO2 53 VBG Base Excess -6 L Assessment & Plan Assessment and plan (1) Anoxic brain injury: Status: Acute Assessment and plan: With underlying seizure disorder, suspected seizure leading to hypoxia/aspiration of gastric contents. GCS: 3 with absent brainstem responses. CT head: diffuse cerebral edema EEG showed isoelectric rhythm consistent with cerebral following anoxic brain injury. Procedures Arterial Line Size (Gauge): 20
[2024-12-08] VITALS (117 sets, daily range): BP systolic 3–227; BP diastolic 3–191; PULSE 124–149; RESP 22–32; TEMP 36.2–36.5; O2SAT 97–100; BMI 30.4
[2024-12-08 02:38] LABS: Anion Gap 15 (7-16); BUN/Creatinine Ratio 19 Ratio (12-20); Blood Urea Nitrogen 15 mg/dL (9-23); Calcium 7.6 mg/dL (8.3-10.6); Carbon Dioxide 18.9 mMol/L (20.0-31.0); Chloride 128 mMol/L (98-107); Creatinine (Component) 0.8 mg/dL (0.6-1.3); Estimated Creatinine Clearance 107.2 mL/min (>60); Glucose 213 mg/dL (74-106); Osmolality,Calculated 327 (275-295); Potassium 3.7 mMol/L (3.4-5.1); eGFR > 60 See Note
[2024-12-08 02:39] LABS: Sodium 162 mMol/L (136-145)
[2024-12-08] MEDS: DEXTROSE 5%-WATER 500 ML 125 ML IV ×3 (03:15→14:17)
[2024-12-08] MEDS: PIPER/TAZO 3.375 GM 3.375 GM/50 ML BAG IV (05:13)
[2024-12-08 05:48] LABS: Basophils # (Auto) 0.1 Thou/mm3 (0.0-0.2); Basophils % (Auto) 1 % (0-2.5); Eosinophils % (Auto) 0 % (0-10); Hematocrit 34.7 % (36.0-46.0); Hemoglobin 11.2 g/dL (12.0-16.0); Immature Granulocytes % (Auto) 2 % (0-0); Immature Granulocytes Auto 0.23 Thou/mm3 (0.00-0.00); Lymphocytes # (Auto) 1.6 Thou/mm3 (1.0-4.8); Lymphocytes % (Auto) 11 % (10-50); Mean Corpuscular HGB Conc 32.3 g/dl (31.0-37.0); Mean Corpuscular Hemoglobin 24.1 pg (25.0-35.0); Mean Corpuscular Volume 75 fL (80-100); Monocytes # (Auto) 0.5 Thou/mm3 (0.0-0.8); Monocytes % (Auto) 4 % (0-12); Neutrophils % (Auto) 84 % (37-80); Nucleated Red Blood Cell % 0 /100 WBC (0); Platelet Count 253 Thou/mm3 (140-440); RDW Standard Deviation 43.4 fL (36.4-46.3); Red Blood Count 4.65 Miln/mm3 (4.00-5.20); White Blood Count 15.5 Thou/mm3 (3.6-11.0)
[2024-12-08 06:34] LABS: Alanine Aminotransferase 58 U/L (10-49); Albumin, Serum 3.2 gm/dL (3.5-5.0); Albumin/Globulin Ratio 1.5 (1.2-2.2); Alkaline Phosphatase 128 U/L (46-116); Anion Gap 9 (7-16); Aspartate Amino Transferase 46 U/L (0-34); BUN/Creatinine Ratio 20 Ratio (12-20); Bilirubin,Total 0.3 mg/dL (0.3-1.2); Blood Urea Nitrogen 14 mg/dL (9-23); Calcium 7.6 mg/dL (8.3-10.6); Calcium (Corrected) 8.2 mg/dL (8.5-10.1); Carbon Dioxide 21.2 mMol/L (20.0-31.0); Chloride 125 mMol/L (98-107); Creatinine (Component) 0.7 mg/dL (0.6-1.3); Estimated Creatinine Clearance 125.1 mL/min (>60); Globulin 2.2 gm/dL (2.3-3.5); Glucose 209 mg/dL (74-106); Magnesium 1.7 mg/dL (1.6-2.6); Osmolality,Calculated 313 (275-295); Phosphorous 3.2 mg/dL (2.4-5.1); Potassium 3.3 mMol/L (3.4-5.1); Sodium 155 mMol/L (136-145); Total Protein 5.4 gm/dL (5.7-8.2); eGFR > 60 See Note
[2024-12-08] MEDS: PANTOPRAZOLE INJ 40 MG VIAL IVP (09:25)
[2024-12-08] MEDS: POTASSIUM CHLORIDE 10% 20 MEQ/15 ML UDC GT (09:25)
[2024-12-08] MEDS: HEPARIN SOD INJ 5000 UNIT/ML VIAL SC ×2 (09:25→21:13)
[2024-12-08] MEDS: levETIRAcetam INJ 100 MG/ML VIAL 5ML 750 MG IVP ×2 (09:26→21:13)
[2024-12-08] MEDS: POTASSIUM CHL 20 mEq IVPB 20 MEQ/100 ML BAG 50 MEQ IV ×2 (09:26→12:07)
[2024-12-08] MEDS: CALCIUM GLUC/NS 1000MG IVPB 1,000 MG/50 ML BAG 50 MG IV (09:29)
[2024-12-08 09:37] LABS: Alanine Aminotransferase 54 U/L (10-49); Albumin, Serum 3.1 gm/dL (3.5-5.0); Albumin/Globulin Ratio 1.3 (1.2-2.2); Alkaline Phosphatase 121 U/L (46-116); Anion Gap 12 (7-16); Aspartate Amino Transferase 41 U/L (0-34); BUN/Creatinine Ratio 17 Ratio (12-20); Bilirubin,Total 0.5 mg/dL (0.3-1.2); Blood Urea Nitrogen 12 mg/dL (9-23); Calcium 7.7 mg/dL (8.3-10.6); Calcium (Corrected) 8.4 mg/dL (8.5-10.1); Carbon Dioxide 21.1 mMol/L (20.0-31.0); Chloride 126 mMol/L (98-107); Creatinine (Component) 0.7 mg/dL (0.6-1.3); Estimated Creatinine Clearance 125.1 mL/min (>60); Globulin 2.3 gm/dL (2.3-3.5); Glucose 173 mg/dL (74-106); Osmolality,Calculated 318 (275-295); Potassium 3.3 mMol/L (3.4-5.1); Sodium 159 mMol/L (136-145); Total Protein 5.4 gm/dL (5.7-8.2); eGFR > 60 See Note
--- NOTE | 2024-12-08 10:48 | CHAP ---
Patient was visited by a Spiritual Care Volunteer on 12/08/2024 between 0900 and 1000 and received comfort, encouragement, and/or prayer.
[2024-12-08] MEDS: DESMOPRESSIN ACETATE 4 MCG/ML VIAL IV (10:58)
[2024-12-08 11:19] LABS: Base Excess -2 (-3-3); HCO3 21 mEq/L (20-26); Inspired Oxygen, FIO2 55 %; O2 Saturation 100 % (91-98); PCO2 29 mmHg (32.0-48.0); PO2 131 mmHg (83-108); pH, Arterial 7.47 (7.35-7.45)
[2024-12-08 11:20] LABS: Allen Test Performed/OK; Puncture Site Arterial Line
--- NOTE | 2024-12-08 11:49 | ESPR_ITS ---
<Statement entered by Kingston Malone MD - 12/09/24 10:34> TOTAL CC TIME: 45 MIN I saw and evaluated the patient. I reviewed the resident?s note and agree with findings and plan as documented in the resident?s note. Upon my evaluation, this patient had a high probability of imminent or life- threatening deterioration due to acute hypoxic respiratory failure, sepsis on vasopressors, postcardiac arrest management which required my direct attention, intervention, and personal management. This time is exclusive of time spent on procedures, which are documented separately if performed. Additional IV fluid was given due to hypotension on pressors. Continue antibiotics for pneumonia Physical exam reveals no brainstem reflexes or responsiveness to noxious stimuli. See below. Apnea test was withheld as we are correcting hyponatremia. DDAVP was restarted for diabetes insipidus. I updated both the patient's sisters at bedside PHYSICAL EXAM No responsiveness to noxious stimuli above and below the neck No movement (spontaneously or to painful stimuli) Absent pupillary light reflex Bilateral absent pupil reflexes. Absent corneal, gag, cough reflexes Absent oculocephalic reflex Absent oculovestibular reflex With head of bed at 30 degrees Documentation for date of: 12/08/24 Subjective Subjective Interval history: Patient is a 34-year-old female with past medical history of epilepsy and urticaria that presented to the ED by EMS after being found down by at home. Patient came in as a CODE BLUE and ROSC was achieved 40 minutes after being found down. Per family patient was last well-known at around 4:30 PM. Per one of the kids heard pain and found to mom on the floor around 5, got home around 5:30 PM and patient was found without a pulse. Family denies any signs of seizure-like activity, and last seizure was about 2 months ago. Patient is seen by Dr Blanchard. Per family patient recently had a cold but was otherwise healthy. Patient is otherwise healthy and had no other complaints prior to event. Unable to obtain ROS as patient is currently unresponsive and on ventilation. 12/07/2024: Patient seen and examined at bedside. Patient currently hypothermic at 94.1 ?F, unresponsive and not on sedation. Patient has been hypotensive, requiring vasopressor support. Overnight, patient had a total urine output of 1.6 L. From 7-11 o'clock this morning patient had about 300 to 400 cc output per hour. On bedside, patient presented with no corneal reflex, fixed pupils at 6 mm and dilated, nonreactive to light, no cough or gag reflex, not responsive to painful stimuli or voice. EEG was ordered and showed no brain activity. Per family at bedside, unsure what made patient unresponsive however daughter heard a sound, and found patient face down. Patient was down for around 30 to 40 minutes, and unsure when CPR was started, however shortly after ED arrival, patient obtained ROSC, around 30 to 40 minutes later. Patient's family did not witness any seizure, however believes that she could have had a seizure, because patient had a prior incident where she was found facedown. 12/08/2024: Patient seen and examined at bedside. Patient's temperature is now 97.7 today. Patient sodium continues to be high at 159. Will continue with CMP every 4 checks and start desmopressin twice daily, water flushes every 6, and LR at 75 mL/h for a liter. Patient also given .500 L LR bolus, and can receive more if needed to balance out her urine output. Urine output per hour so far has been about 70 to 100/h. Sodium goal is 140 8-1 52. Will also continue to correct potassium. Will plan for apnea test tomorrow. Patient's family were at bedside, and understood the process. All questions asked and answered. Exam Vital Signs Temp Pulse Resp BP Pulse Ox O2 Del Method FiO2 97.5 F 130 H 28 H 76/64 L 99 Mechanical Ventilation 55 12/08/24 04:00 12/08/24 10:12 12/08/24 07:30 12/08/24 10:12 12/08/24 10:12 12/07/24 06:15 12/08/24 10:12 Narrative Exam GENERAL: Young female, healthy, GCS 3 T, intubated and on mechanical ventilation. Nonreactive to painful stimuli. Unresponsive. HEENT: NC/AT, moist mucous membranes, sclera anicteric, pupils fixed at 6 mm and dilated, no corneal reflex no cough no gag reflex HEART: Regular rate and rhythm, no murmurs, rubs or gallops. LUNGS: Rhonchi on auscultation both lungs. Mechanically ventilated, no overbreathing over the vent ABDOMEN: Obese. Soft. No grimacing on palpation. Sounds heard EXTREMITIES: No edema, clubbing, mottling pedal pulses felt bilaterally, with no movement to noxious stimuli SKIN: Cold and dry, no jaundice or rashes noted except for cut on her digits and nails and 2 identical pinpoint wounds below her bilateral knees. NEURO: GCS of 3 with no motor response or eye-opening, but unable to obtain verbal response as she is intubated. Pupils nonreactive?fixed and dilated. Does not react to painful stimuli. Objective Labs 12/08/24 04:50 12/08/24 15:32 Labs: Laboratory Results - last 24 hr 12/06/24 12/07/24 12/07/24 18:30 12:40 18:26 WBC RBC Hgb Hct MCV MCH MCHC RDW Std Deviation Plt Count Neut % (Auto) Lymph % (Auto) [place] % (Auto) Eos % (Auto) Baso % (Auto) Neut # (Auto) Lymph # (Auto) [place] # (Auto) Eos # (Auto) Baso # (Auto) Immature Gran # (Auto) Absolute Nucleated RBC Immature Gran % Nucleated RBC % Smear Path Review Sent to Pathologist Puncture Site ABG pH ABG pCO2 ABG pO2 ABG HCO3 ABG O2 Saturation ABG Base Excess VBG pH 7.42 VBG pCO2 27 L VBG pO2 53 VBG O2 Sat (Michelle) 90 L VBG Base Excess -6 L FiO2 Sodium 158 H 160 H Potassium 2.6 L* 3.8 D Chloride 125 H* 128 H* Carbon Dioxide 18.4 L 19.1 L Anion Gap 15 13 BUN 19 18 Creatinine 0.8 0.8 Estim Creat Clear Calc 107.2 107.2 eGFR > 60 > 60 BUN/Creatinine Ratio 24 H 23 H Glucose 169 H 149 H Calculated Osmolality 319 H 321 H Lactic Acid 4.5 H* Calcium 7.3 L 7.9 L Corrected Calcium Phosphorus Magnesium Total Bilirubin AST ALT Alkaline Phosphatase Total Protein Albumin Globulin Albumin/Globulin Ratio 12/07/24 12/07/24 12/08/24 20:15 21:30 02:09 WBC RBC Hgb Hct MCV MCH MCHC RDW Std Deviation Plt Count Neut % (Auto) Lymph % (Auto) [place] % (Auto) Eos % (Auto) Baso % (Auto) Neut # (Auto) Lymph # (Auto) [place] # (Auto) Eos # (Auto) Baso # (Auto) Immature Gran # (Auto) Absolute Nucleated RBC Immature Gran % Nucleated RBC % Smear Path Review Puncture Site Arterial Line ABG pH 7.38 ABG pCO2 33 ABG pO2 68 L ABG HCO3 19 L ABG O2 Saturation 94 ABG Base Excess -5 L VBG pH VBG pCO2 VBG pO2 VBG O2 Sat (Michelle) VBG Base Excess FiO2 60 Sodium 165 H* 162 H* Potassium 3.5 3.7 Chloride 129 H* 128 H* Carbon Dioxide 19.2 L 18.9 L Anion Gap 17 H 15 BUN 16 15 Creatinine 0.8 0.8 Estim Creat Clear Calc 107.2 107.2 eGFR > 60 > 60 BUN/Creatinine Ratio 20 19 Glucose 146 H 213 H D Calculated Osmolality 330 H 327 H Lactic Acid 5.0 H* Calcium 8.1 L 7.6 L Corrected Calcium Phosphorus Magnesium Total Bilirubin AST ALT Alkaline Phosphatase Total Protein Albumin Globulin Albumin/Globulin Ratio 12/08/24 12/08/24 12/08/24 04:50 08:48 11:09 WBC 15.5 H D RBC 4.65 Hgb 11.2 L Hct 34.7 L MCV 75 L MCH 24.1 L MCHC 32.3 RDW Std Deviation 43.4 Plt Count 253 D Neut % (Auto) 84 H Lymph % (Auto) 11 [place] % (Auto) 4 Eos % (Auto) 0 Baso % (Auto) 1 Neut # (Auto) 13.0 H Lymph # (Auto) 1.6 [place] # (Auto) 0.5 Eos # (Auto) 0.0 Baso # (Auto) 0.1 Immature Gran # (Auto) 0.23 H Absolute Nucleated RBC 0.00 Immature Gran % 2 H Nucleated RBC % 0 Smear Path Review Puncture Site Arterial Line ABG pH 7.47 H ABG pCO2 29 L ABG pO2 131 H D ABG HCO3 21 ABG O2 Saturation 100 H ABG Base Excess -2 VBG pH VBG pCO2 VBG pO2 VBG O2 Sat (Michelle) VBG Base Excess FiO2 55 Sodium 155 H 159 H Potassium 3.3 L 3.3 L Chloride 125 H* 126 H* Carbon Dioxide 21.2 21.1 Anion Gap 9 12 BUN 14 12 Creatinine 0.7 0.7 Estim Creat Clear Calc 125.1 125.1 eGFR > 60 > 60 BUN/Creatinine Ratio 20 17 Glucose 209 H 173 H Calculated Osmolality 313 H 318 H Lactic Acid Calcium 7.6 L 7.7 L Corrected Calcium 8.2 L 8.4 L Phosphorus 3.2 Magnesium 1.7 Total Bilirubin 0.3 0.5 AST 46 H 41 H ALT 58 H 54 H Alkaline Phosphatase 128 H D 121 H Total Protein 5.4 L 5.4 L Albumin 3.2 L 3.1 L Globulin 2.2 L 2.3 Albumin/Globulin Ratio 1.5 1.3 ABG Interpretation ABG results: 12/06/24 12/07/24 12/07/24 19:19 00:58 07:43 ABG pH 6.89 L* 7.30 L D 7.34 L ABG pCO2 62 H 41 D 34 ABG pO2 287 H 197 H D 79 L D ABG HCO3 12 L 20 18 L ABG O2 Saturation 100 H 100 H 96 ABG Base Excess -21 L -6 L -7 L VBG pH VBG pCO2 VBG pO2 VBG Base Excess 12/07/24 12/07/24 12/08/24 18:26 20:15 11:09 ABG pH 7.38 7.47 H ABG pCO2 33 29 L ABG pO2 68 L 131 H D ABG HCO3 19 L 21 ABG O2 Saturation 94 100 H ABG Base Excess -5 L -2 VBG pH 7.42 VBG pCO2 27 L VBG pO2 53 VBG Base Excess -6 L Quality Measures Quality Measures none Assessment & Plan Assessment Current Active Medications: Generic Name Dose Route Start Last Admin Trade Name Freq PRN Reason Stop Dose Admin Acetaminophen 650 mg 12/06/24 22:43 Acetaminophen Supp 650 Mg Supp MS 01/05/25 22:42 Q6HR PRN [id number] Desmopressin Acetate 2 mcg 12/08/24 09:00 Desmopressin Acetate 4 Mcg/Ml Vial IV 01/07/25 08:59 BID SOULEYMANE Heparin Sodium (Porcine) 5,000 unit 12/07/24 09:00 12/08/24 09:25 Heparin Sod Inj 5000 Unit/Ml Vial SC 12/21/24 08:59 5,000 unit Q12HR SOULEYMANE Administration Norepinephrine/Dextrose 8 mg in 250 mls @ 7.654 mls/hr 12/06/24 19:05 12/08/24 06:00 Levophed In D5w 8mg/250ml IV 01/05/25 19:04 0.01 mcg/kg/min .Q24H PRN 1.531 mls/hr PER PROTOCOL Titration Protocol 0.05 MCG/KG/MIN Potassium Chloride 20 meq in 100 mls @ 50 mls/hr 12/08/24 08:12 12/08/24 09:26 Kcl Ivpb IV 12/08/24 12:11 50 mls/hr Q2H SOULEYMANE Administration Levetiracetam 750 mg 12/07/24 09:00 12/08/24 09:26 Levetiracetam Inj 100 Mg/Ml Vial 5ml IVP 01/06/25 08:59 750 mg Q12HR SOULEYMANE Administration Ondansetron HCl 4 mg 12/06/24 22:43 Ondansetron Inj 2 Mg/Ml Inj 2 Ml IV 01/05/25 22:42 Q6H PRN NAUSEA OR VOMITING Protocol Pantoprazole Sodium 40 mg 12/07/24 09:00 12/08/24 09:25 Pantoprazole Inj 40 Mg Vial IVP 01/06/25 08:59 40 mg QDAY SOULEYMANE Administration Plan Patient is a 34-year-old female with past medical history of epilepsy and urticaria that presented to the ED by EMS after being found down by at home. Patient admitted to ICU for further management of s/p cardiac arrest and shock requiring vasopressor support. NEURO #Severe Anoxic Encephalopathy #Cerebral Edema Patient presented with a GCC of 3T, and no response to CN activity. EEG ordered and showed diffuse isoelectic rhythm, seen consistent with hypoxic brain injury. Head CT showed diffuse cerebral edema -pending final read for EEG -sleep apnea test in AM -formal brain assessment after patient is euthermic, at least 98.6F -Continue to monitor for Fernanda triad reflex to assess for worsening cerebral herniation normal -Neurology following, appreciate recs -Family updated on current prognosis -Donor network contacted #Hx of Seizure disorder -Continue with Keppra 750mg BID, home dose CARDIO #Undifferentiated shock #S/P cardiac arrest Patient most likley had a breakthrough seizure that lead to unresponsiveness and cardiac arrest. Troponin within normal limits and EKG shows normal sinus rhythm, rate 89, no LAD, QTc 462, nonspecific ST changes Bedside echo showed collapsible IVC, more than 50% collapsibility with hyperdynamic LV contractility, however d/t extreme polyuria, patient has both hypovolemic and distributive components Less likely to be cardiogenic or obstructive Echo showed severely reduced LV function with an EF < 30%, Possible normal RV systolic function. -A-line placed for further invasive BP and central line placed for variable levophed requirements -Titrate pressors to MAP > 65 -Echo ordered, and pending read -Goal to keep patient euthermic, 97.7-99.5 PULM #AHHRF #Aspiration PNA vs Pneumonitis vs CAP DDx: most likely in the setting of hypoxia and hypoxemia while found unresponsive vs aspiration pneumonitis Patient found to have fluid and food when intubating; ABG on arrival: pH 6.89, pCO2 62, pO2 287, bicarb 12 Patient intubated upon ED arrival, and confirmed with CXR for placement. -Continue to monitor with ABG, and adjust vent settings accordingly -CXR showed b/l infiltrates, will continue with IV Unasyn -Dc'ed Vanc and Zosyn -Pending Sputum Cultures GI/FEN #Transaminitis in the setting of hypotension and shock #Distended fluid loops in [place] DDx: in the setting of umbilial hernia vs ileus vs SBO Unsure when patient had last BM #GI prophylaxis -start daily PPI RENAL #Lactic Acidosis-resolving #AGMA in the setting of cardiacpulmonary arrest Most likely lactic acidosis type A secondary to shock LA was 16 on admission, with a AG of 18, pH 6.89 LA downtrended -Monitor CMP Q4HR -F/u with ABG in AM for PaCO2 level #Hyperphosphatemia #Hypermagnesemia #Hypocalcemia #Hypernatremia #Hypokalemia Replete electrolytes as needed -Continue to give desmopressin 2 mcg twice daily which will help dramatically with decrease in urine ouput per hour and maintain her Na, which we will keep permissively high d/t her cerebral edema -Continue to monitor electrolytes every 4, and replete potassium and calcium as needed. -If patient's sodium continues to be high, can give extra LR boluses as well as increasing the D5W rate -Currently patient is running at 75 cc/h D5W for total of 1 L -Goal sodium is around 148-150 HEME/ONC #Anemia-stable Patient's MCV 79. H&H stable ENDO #?DI -Patient has more than 400cc output for more than three hours reported -In lieu of her hypernatremia, will give a x 1 desmopressin -Continue to monitor UO with [place] ID #Aspiration Pneumonia #Sepsis Imaging shows bilateral opacities consistent with aspiration pneumonia Sputum, blood, and urine cultures ordered qSOFA 3 points indicating 3-14 fold increase in in-hospital mortality Tylenol as needed for fever, received 30cc/kg Fluid resuscitation in the ED -Continue with IV Unasyn -F/u cultures MSK #Acute 3rd Left rib Fracture #Fracture of sternum CT C/A/P: Acute fracture left third rib anteriorly and nondisplaced fracture body of sternum Cervical spine CT: No acute cervical fracture -Patient currently not sedated, but will give pain meds as needed Health Maintenance: DVT prophylaxis: Heparin SC Diet: NPO [place]: Yes Lines: PIV, Central, A-line Drips: Levophed Vent: Tidal volume CODE STATUS: Full code Disposition: Admitted to ICU for s/p cardiac arrest and AMS requiring intubation and shock for vasopressor support. Patient's plan and care discussed with my attending, Dr. Malone. Sujata Blanchard MD PGY-2
[2024-12-08 13:19] LABS: Anion Gap 12 (7-16); BUN/Creatinine Ratio 15 Ratio (12-20); Blood Urea Nitrogen 12 mg/dL (9-23); Calcium 8.1 mg/dL (8.3-10.6); Carbon Dioxide 20.2 mMol/L (20.0-31.0); Chloride 123 mMol/L (98-107); Creatinine (Component) 0.8 mg/dL (0.6-1.3); Estimated Creatinine Clearance 109.5 mL/min (>60); Glucose 110 mg/dL (74-106); Osmolality,Calculated 308 (275-295); Potassium 4.1 mMol/L (3.4-5.1); Sodium 155 mMol/L (136-145); eGFR > 60 See Note
[2024-12-08] MEDS: AMPICILLIN/SULBAC INJ 3 GM in SODIUM CHLORIDE 0.9% (P) 100 ML IV ×3 (14:17→23:20)
[2024-12-08] MEDS: RINGERS LACTATED 1000 ML 500 ML 999 ML IV (15:21)
[2024-12-08 16:13] LABS: Alanine Aminotransferase 39 U/L (10-49); Albumin, Serum 2.8 gm/dL (3.5-5.0); Albumin/Globulin Ratio 1.4 (1.2-2.2); Alkaline Phosphatase 115 U/L (46-116); Anion Gap 12 (7-16); Aspartate Amino Transferase 34 U/L (0-34); BUN/Creatinine Ratio 19 Ratio (12-20); Bilirubin,Total 0.5 mg/dL (0.3-1.2); Blood Urea Nitrogen 13 mg/dL (9-23); Calcium 7.6 mg/dL (8.3-10.6); Calcium (Corrected) 8.6 mg/dL (8.5-10.1); Carbon Dioxide 18.6 mMol/L (20.0-31.0); Chloride 122 mMol/L (98-107); Creatinine (Component) 0.7 mg/dL (0.6-1.3); Estimated Creatinine Clearance 125.1 mL/min (>60); Glucose 129 mg/dL (74-106); Osmolality,Calculated 305 (275-295); Potassium 3.7 mMol/L (3.4-5.1); Sodium 153 mMol/L (136-145); Total Protein 4.8 gm/dL (5.7-8.2); eGFR > 60 See Note
[2024-12-08] MEDS: POTASSIUM CHLORIDE 10% 20 MEQ/15 ML UDC 30 MEQ GT (17:55)
[2024-12-08] MEDS: POTASSIUM CHL 10 mEq IVPB 10 MEQ/100 ML BAG 100 MEQ IV ×2 (17:57→19:25)
--- NOTE | 2024-12-08 18:17 | PC.NURSE ---
Dr. Broderick made aware of patients ART line not working properly, per Dr. Broderick keep for now, Dr. Broderick also made aware of current order for low intermitted suction, suction d/c, confirmed patient has 500ml free water flush q6hr, Dr. Broderick and Dr. Hernandez made aware of patient urine output of 35ml for last 4 hours
[2024-12-08] MEDS: POTASSIUM CHLORIDE 10% 20 MEQ/15 ML UDC 40 MEQ GT (21:11)
[2024-12-08] MEDS: DESMOPRESSIN ACETATE 4 MCG/ML VIAL 2 MCG IV (21:12)
[2024-12-08 22:04] LABS: Alanine Aminotransferase 41 U/L (10-49); Albumin, Serum 2.8 gm/dL (3.5-5.0); Albumin/Globulin Ratio 1.3 (1.2-2.2); Alkaline Phosphatase 111 U/L (46-116); Anion Gap 11 (7-16); Aspartate Amino Transferase 33 U/L (0-34); BUN/Creatinine Ratio 20 Ratio (12-20); Bilirubin,Total 0.6 mg/dL (0.3-1.2); Blood Urea Nitrogen 14 mg/dL (9-23); Calcium 7.7 mg/dL (8.3-10.6); Calcium (Corrected) 8.7 mg/dL (8.5-10.1); Carbon Dioxide 18.4 mMol/L (20.0-31.0); Chloride 123 mMol/L (98-107); Creatinine (Component) 0.7 mg/dL (0.6-1.3); Estimated Creatinine Clearance 125.1 mL/min (>60); Globulin 2.2 gm/dL (2.3-3.5); Glucose 113 mg/dL (74-106); Osmolality,Calculated 303 (275-295); Sodium 152 mMol/L (136-145); eGFR > 60 See Note
[2024-12-08 22:19] LABS: Vancomycin,Trough < 3.0 mcg/mL (5.0-10.0)
[2024-12-08] MEDS: Magnesium Sulfate 4 GM Ivpb 4 GM/50 ML BAG IV (23:18)
--- NOTE | 2024-12-08 23:20 | PD.VPROG1 ---
Telemedicine visit statement This visit was conducted with the use of phone was obtained on 12/08/24 at 2320. Documentation for date of: 12/08/24 Subjective Subjective Interval history: Patient is in ICU. Continue to remain intubated and on mechanical ventilatory support. Sodium is coming down after being on desmopressin, no myoclonic jerks noted. Continued to be with a GCS of 3 and absent brainstem reflexes. Virtual exam Vital Signs Temp Pulse Resp BP Pulse Ox O2 Del Method FiO2 97.5 F 127 H 28 H 90/72 99 Mechanical Ventilation 55 12/08/24 20:01 12/08/24 23:00 12/08/24 23:00 12/08/24 23:00 12/08/24 23:00 12/08/24 12:01 12/08/24 20:00 Objective Labs 12/08/24 04:50 12/08/24 21:23 Labs: Laboratory Results - last 24 hr 12/08/24 12/08/24 12/08/24 02:09 04:50 08:48 WBC 15.5 H D RBC 4.65 Hgb 11.2 L Hct 34.7 L MCV 75 L MCH 24.1 L MCHC 32.3 RDW Std Deviation 43.4 Plt Count 253 D Neut % (Auto) 84 H Lymph % (Auto) 11 [place] % (Auto) 4 Eos % (Auto) 0 Baso % (Auto) 1 Neut # (Auto) 13.0 H Lymph # (Auto) 1.6 [place] # (Auto) 0.5 Eos # (Auto) 0.0 Baso # (Auto) 0.1 Immature Gran # (Auto) 0.23 H Absolute Nucleated RBC 0.00 Immature Gran % 2 H Nucleated RBC % 0 Puncture Site ABG pH ABG pCO2 ABG pO2 ABG HCO3 ABG O2 Saturation ABG Base Excess FiO2 Sodium 162 H* 155 H 159 H Potassium 3.7 3.3 L 3.3 L Chloride 128 H* 125 H* 126 H* Carbon Dioxide 18.9 L 21.2 21.1 Anion Gap 15 9 12 BUN 15 14 12 Creatinine 0.8 0.7 0.7 Estim Creat Clear Calc 107.2 125.1 125.1 eGFR > 60 > 60 > 60 BUN/Creatinine Ratio 19 20 17 Glucose 213 H D 209 H 173 H Calculated Osmolality 327 H 313 H 318 H Calcium 7.6 L 7.6 L 7.7 L Corrected Calcium 8.2 L 8.4 L Phosphorus 3.2 Magnesium 1.7 Total Bilirubin 0.3 0.5 AST 46 H 41 H ALT 58 H 54 H Alkaline Phosphatase 128 H D 121 H Total Protein 5.4 L 5.4 L Albumin 3.2 L 3.1 L Globulin 2.2 L 2.3 Albumin/Globulin Ratio 1.5 1.3 Vancomycin Trough 12/08/24 12/08/24 12/08/24 11:09 12:15 15:32 WBC RBC Hgb Hct MCV MCH MCHC RDW Std Deviation Plt Count Neut % (Auto) Lymph % (Auto) [place] % (Auto) Eos % (Auto) Baso % (Auto) Neut # (Auto) Lymph # (Auto) [place] # (Auto) Eos # (Auto) Baso # (Auto) Immature Gran # (Auto) Absolute Nucleated RBC Immature Gran % Nucleated RBC % Puncture Site Arterial Line ABG pH 7.47 H ABG pCO2 29 L ABG pO2 131 H D ABG HCO3 21 ABG O2 Saturation 100 H ABG Base Excess -2 FiO2 55 Sodium 155 H 153 H Potassium 4.1 D 3.7 Chloride 123 H* 122 H* Carbon Dioxide 20.2 18.6 L Anion Gap 12 12 BUN 12 13 Creatinine 0.8 0.7 Estim Creat Clear Calc 109.5 125.1 eGFR > 60 > 60 BUN/Creatinine Ratio 15 19 Glucose 110 H D 129 H Calculated Osmolality 308 H 305 H Calcium 8.1 L 7.6 L Corrected Calcium 8.6 Phosphorus Magnesium Total Bilirubin 0.5 AST 34 ALT 39 Alkaline Phosphatase 115 Total Protein 4.8 L Albumin 2.8 L Globulin 2.0 L Albumin/Globulin Ratio 1.4 Vancomycin Trough 12/08/24 21:23 WBC RBC Hgb Hct MCV MCH MCHC RDW Std Deviation Plt Count Neut % (Auto) Lymph % (Auto) [place] % (Auto) Eos % (Auto) Baso % (Auto) Neut # (Auto) Lymph # (Auto) [place] # (Auto) Eos # (Auto) Baso # (Auto) Immature Gran # (Auto) Absolute Nucleated RBC Immature Gran % Nucleated RBC % Puncture Site ABG pH ABG pCO2 ABG pO2 ABG HCO3 ABG O2 Saturation ABG Base Excess FiO2 Sodium 152 H Potassium 4.0 Chloride 123 H* Carbon Dioxide 18.4 L Anion Gap 11 BUN 14 Creatinine 0.7 Estim Creat Clear Calc 125.1 eGFR > 60 BUN/Creatinine Ratio 20 Glucose 113 H Calculated Osmolality 303 H Calcium 7.7 L Corrected Calcium 8.7 Phosphorus Magnesium Total Bilirubin 0.6 AST 33 ALT 41 Alkaline Phosphatase 111 Total Protein 5.0 L Albumin 2.8 L Globulin 2.2 L Albumin/Globulin Ratio 1.3 Vancomycin Trough < 3.0 L ABG Interpretation ABG results: 12/06/24 12/07/24 12/07/24 19:19 00:58 07:43 ABG pH 6.89 L* 7.30 L D 7.34 L ABG pCO2 62 H 41 D 34 ABG pO2 287 H 197 H D 79 L D ABG HCO3 12 L 20 18 L ABG O2 Saturation 100 H 100 H 96 ABG Base Excess -21 L -6 L -7 L VBG pH VBG pCO2 VBG pO2 VBG Base Excess 12/07/24 12/07/24 12/08/24 18:26 20:15 11:09 ABG pH 7.38 7.47 H ABG pCO2 33 29 L ABG pO2 68 L 131 H D ABG HCO3 19 L 21 ABG O2 Saturation 94 100 H ABG Base Excess -5 L -2 VBG pH 7.42 VBG pCO2 27 L VBG pO2 53 VBG Base Excess -6 L Assessment & Plan Assessment 1) Anoxic brain injury: With underlying seizure disorder, suspected seizure leading to hypoxia/aspiration of gastric contents. GCS: 3 with absent brainstem responses. CT head: diffuse cerebral edema EEG showed isoelectric rhythm consistent with cerebral following anoxic brain injury. Apnea testing tomorrow after the sodium and the temperature normalizes.
[2024-12-09] VITALS (62 sets, daily range): BP systolic 76–141; BP diastolic 49–101; PULSE 79–128; RESP 0–29; TEMP 36.2–37; O2SAT 23–100
[2024-12-09 01:09] LABS: Alanine Aminotransferase 38 U/L (10-49); Albumin, Serum 2.8 gm/dL (3.5-5.0); Albumin/Globulin Ratio 1.3 (1.2-2.2); Alkaline Phosphatase 112 U/L (46-116); Anion Gap 10 (7-16); Aspartate Amino Transferase 30 U/L (0-34); BUN/Creatinine Ratio 20 Ratio (12-20); Bilirubin,Total 0.6 mg/dL (0.3-1.2); Blood Urea Nitrogen 14 mg/dL (9-23); Calcium 7.7 mg/dL (8.3-10.6); Calcium (Corrected) 8.7 mg/dL (8.5-10.1); Carbon Dioxide 18.8 mMol/L (20.0-31.0); Chloride 121 mMol/L (98-107); Creatinine (Component) 0.7 mg/dL (0.6-1.3); Estimated Creatinine Clearance 125.1 mL/min (>60); Globulin 2.2 gm/dL (2.3-3.5); Glucose 109 mg/dL (74-106); Osmolality,Calculated 299 (275-295); Potassium 4.2 mMol/L (3.4-5.1); Sodium 150 mMol/L (136-145); eGFR > 60 See Note
[2024-12-09] MEDS: Norepinephrine/D5W 8mg/250ml 8 MG/250 ML BAG 4.593 MG IV (01:35)
[2024-12-09] MEDS: RINGERS LACTATED 1000 ML 1,000 ML 50 ML IV (02:35)
[2024-12-09] MEDS: DEXTROSE 5%-WATER 500 ML 75 ML IV (02:35)
[2024-12-09 05:02] LABS: Base Excess -4 (-3-3); HCO3 18 mEq/L (20-26); Inspired Oxygen, FIO2 55 %; O2 Saturation 100 % (91-98); PCO2 25 mmHg (32.0-48.0); PO2 185 mmHg (83-108); pH, Arterial 7.47 (7.35-7.45)
[2024-12-09 05:03] LABS: Allen Test Performed/OK; Puncture Site Right Radial
[2024-12-09] MEDS: AMPICILLIN/SULBAC INJ 3 GM in SODIUM CHLORIDE 0.9% (P) 100 ML IV ×2 (05:17→11:42)
[2024-12-09 05:22] LABS: Basophils # (Auto) 0.1 Thou/mm3 (0.0-0.2); Basophils % (Auto) 1 % (0-2.5); Eosinophils # (Auto) 0.2 Thou/mm3 (0.0-0.5); Eosinophils % (Auto) 2 % (0-10); Hematocrit 28.1 % (36.0-46.0); Immature Granulocytes % (Auto) 2 % (0-0); Immature Granulocytes Auto 0.22 Thou/mm3 (0.00-0.00); Lymphocytes % (Auto) 16 % (10-50); Mean Corpuscular HGB Conc 31.3 g/dl (31.0-37.0); Mean Corpuscular Hemoglobin 23.5 pg (25.0-35.0); Mean Corpuscular Volume 75 fL (80-100); Monocytes # (Auto) 0.4 Thou/mm3 (0.0-0.8); Monocytes % (Auto) 3 % (0-12); Neutrophils # (Auto) 9.5 Thou/mm3 (1.8-7.7); Neutrophils % (Auto) 77 % (37-80); Nucleated Red Blood Cell % 0 /100 WBC (0); Platelet Count 194 Thou/mm3 (140-440); RDW Standard Deviation 44.8 fL (36.4-46.3); Red Blood Count 3.74 Miln/mm3 (4.00-5.20); White Blood Count 12.4 Thou/mm3 (3.6-11.0)
[2024-12-09 05:24] LABS: Hemoglobin 8.8 g/dL (12.0-16.0)
[2024-12-09 05:48] LABS: Alanine Aminotransferase 35 U/L (10-49); Albumin, Serum 2.7 gm/dL (3.5-5.0); Albumin/Globulin Ratio 1.4 (1.2-2.2); Alkaline Phosphatase 119 U/L (46-116); Anion Gap 8 (7-16); Aspartate Amino Transferase 26 U/L (0-34); BUN/Creatinine Ratio 23 Ratio (12-20); Bilirubin,Total 0.6 mg/dL (0.3-1.2); Blood Urea Nitrogen 16 mg/dL (9-23); Calcium 7.6 mg/dL (8.3-10.6); Calcium (Corrected) 8.6 mg/dL (8.5-10.1); Carbon Dioxide 19.8 mMol/L (20.0-31.0); Chloride 120 mMol/L (98-107); Creatinine (Component) 0.7 mg/dL (0.6-1.3); Estimated Creatinine Clearance 125.1 mL/min (>60); Glucose 117 mg/dL (74-106); Magnesium 2.5 mg/dL (1.6-2.6); Osmolality,Calculated 296 (275-295); Phosphorous 2.1 mg/dL (2.4-5.1); Potassium 3.7 mMol/L (3.4-5.1); Sodium 148 mMol/L (136-145); Total Protein 4.7 gm/dL (5.7-8.2); eGFR > 60 See Note
--- NOTE | 2024-12-09 06:56 | ESPR_ITS ---
<Statement entered by Kingston Malone MD - 12/10/24 08:29> TOTAL TIME: 45MINUTES ON DIRECT MEDICAL CARE, MANAGEMENT - COORDINATION AND COUNSELING > 50% OF TOTAL TIME I saw and evaluated the patient. I reviewed the resident?s note and agree with findings and plan as documented in the resident?s note. Brainstem reflexes remain absent on physical exam today. The patient underwent an apnea test which was consistent with brain . See results in the resident's note family meeting was held and they were informed of the results of the exam and apnea test confirming brain . Request was made for second neurological exam to confirm brain . Documentation for date of: 12/09/24 Subjective Subjective Interval history: Patient is a 34-year-old female with past medical history of epilepsy and urticaria that presented to the ED by EMS after being found down by at home. Patient came in as a CODE BLUE and ROSC was achieved 40 minutes after being found down. Per family patient was last well-known at around 4:30 PM. Per one of the kids heard pain and found to mom on the floor around 5, got home around 5:30 PM and patient was found without a pulse. Family denies any signs of seizure-like activity, and last seizure was about 2 months ago. Patient is seen by Dr Blanchard. Per family patient recently had a cold but was otherwise healthy. Patient is otherwise healthy and had no other complaints prior to event. Unable to obtain ROS as patient is currently unresponsive and on ventilation. 12/07/2024: Patient seen and examined at bedside. Patient currently hypothermic at 94.1 ?F, unresponsive and not on sedation. Patient has been hypotensive, requiring vasopressor support. Overnight, patient had a total urine output of 1.6 L. From 7-11 o'clock this morning patient had about 300 to 400 cc output per hour. On bedside, patient presented with no corneal reflex, fixed pupils at 6 mm and dilated, nonreactive to light, no cough or gag reflex, not responsive to painful stimuli or voice. EEG was ordered and showed no brain activity. Per family at bedside, unsure what made patient unresponsive however daughter heard a sound, and found patient face down. Patient was down for around 30 to 40 minutes, and unsure when CPR was started, however shortly after ED arrival, patient obtained ROSC, around 30 to 40 minutes later. Patient's family did not witness any seizure, however believes that she could have had a seizure, because patient had a prior incident where she was found facedown. 12/08/2024: Patient seen and examined at bedside. Patient's temperature is now 97.7 today. Patient sodium continues to be high at 159. Will continue with CMP every 4 checks and start desmopressin twice daily, water flushes every 6, and LR at 75 mL/h for a liter. Patient also given .500 L LR bolus, and can receive more if needed to balance out her urine output. Urine output per hour so far has been about 70 to 100/h. Sodium goal is 140 8-1 52. Will also continue to correct potassium. Will plan for apnea test tomorrow. Patient's family were at bedside, and understood the process. All questions asked and answered. 12/09/2024: Overnight, patient had a total urine output of 345 cc. Patient was having about 30-35cc/hr and decreased later toward end of shift to 20-25cc/hr. Patient's K+ has been 3.7 will replete to keep above 4. Na is at 148, which is near goal. Patient's D5W was stopped early this morning, and is on LR 50cc/hr. Patient continues to be on low dose Levophed gtt. Apnea test performed today, with ABGs taken before and after. PaCO2 showed more than a 20 point increase and no evidence of respiratory effort noted supporting the diagnosis of brain . Pending 2nd examiner evaluation for evaluation of brain . Exam Vital Signs Temp Pulse Resp BP Pulse Ox O2 Del Method FiO2 97.2 F 110 H 28 H 102/72 100 Mechanical Ventilation 55 12/09/24 04:00 12/09/24 06:28 12/09/24 06:15 12/09/24 06:15 12/09/24 06:28 12/08/24 12:01 12/09/24 06:28 Narrative Exam GENERAL: Young female, healthy, GCS 3 T, intubated and on mechanical ventilation. Nonreactive to painful stimuli. Unresponsive. HEENT: NC/AT, moist mucous membranes, sclera anicteric, pupils fixed at 6 mm and dilated, no corneal reflex no cough no gag reflex HEART: Regular rate and rhythm, no murmurs, rubs or gallops. LUNGS: Rhonchi on auscultation both lungs. Mechanically ventilated, no overbreathing over the vent ABDOMEN: Obese. Soft. No grimacing on palpation. Sounds heard EXTREMITIES: No edema, clubbing, mottling pedal pulses felt bilaterally, with no movement to noxious stimuli SKIN: Cold and dry, no jaundice or rashes noted except for cut on her digits and nails and 2 identical pinpoint wounds below her bilateral knees. NEURO: GCS of 3 with no motor response or eye-opening, but unable to obtain verbal response as she is intubated. Pupils nonreactive?fixed and dilated. Does not react to painful stimuli. Objective Labs 12/09/24 04:56 12/09/24 04:56 Labs: Laboratory Results - last 24 hr 12/08/24 12/08/24 12/08/24 08:48 11:09 12:15 WBC RBC Hgb Hct MCV MCH MCHC RDW Std Deviation Plt Count Neut % (Auto) Lymph % (Auto) [place] % (Auto) Eos % (Auto) Baso % (Auto) Neut # (Auto) Lymph # (Auto) [place] # (Auto) Eos # (Auto) Baso # (Auto) Immature Gran # (Auto) Absolute Nucleated RBC Immature Gran % Nucleated RBC % Puncture Site Arterial Line ABG pH 7.47 H ABG pCO2 29 L ABG pO2 131 H D ABG HCO3 21 ABG O2 Saturation 100 H ABG Base Excess -2 FiO2 55 Sodium 159 H 155 H Potassium 3.3 L 4.1 D Chloride 126 H* 123 H* Carbon Dioxide 21.1 20.2 Anion Gap 12 12 BUN 12 12 Creatinine 0.7 0.8 Estim Creat Clear Calc 125.1 109.5 eGFR > 60 > 60 BUN/Creatinine Ratio 17 15 Glucose 173 H 110 H D Calculated Osmolality 318 H 308 H Calcium 7.7 L 8.1 L Corrected Calcium 8.4 L Phosphorus Magnesium Total Bilirubin 0.5 AST 41 H ALT 54 H Alkaline Phosphatase 121 H Total Protein 5.4 L Albumin 3.1 L Globulin 2.3 Albumin/Globulin Ratio 1.3 Vancomycin Trough 12/08/24 12/08/24 12/09/24 15:32 21:23 00:36 WBC RBC Hgb Hct MCV MCH MCHC RDW Std Deviation Plt Count Neut % (Auto) Lymph % (Auto) [place] % (Auto) Eos % (Auto) Baso % (Auto) Neut # (Auto) Lymph # (Auto) [place] # (Auto) Eos # (Auto) Baso # (Auto) Immature Gran # (Auto) Absolute Nucleated RBC Immature Gran % Nucleated RBC % Puncture Site ABG pH ABG pCO2 ABG pO2 ABG HCO3 ABG O2 Saturation ABG Base Excess FiO2 Sodium 153 H 152 H 150 H Potassium 3.7 4.0 4.2 Chloride 122 H* 123 H* 121 H* Carbon Dioxide 18.6 L 18.4 L 18.8 L Anion Gap 12 11 10 BUN 13 14 14 Creatinine 0.7 0.7 0.7 Estim Creat Clear Calc 125.1 125.1 125.1 eGFR > 60 > 60 > 60 BUN/Creatinine Ratio 19 20 20 Glucose 129 H 113 H 109 H Calculated Osmolality 305 H 303 H 299 H Calcium 7.6 L 7.7 L 7.7 L Corrected Calcium 8.6 8.7 8.7 Phosphorus Magnesium Total Bilirubin 0.5 0.6 0.6 AST 34 33 30 ALT 39 41 38 Alkaline Phosphatase 115 111 112 Total Protein 4.8 L 5.0 L 5.0 L Albumin 2.8 L 2.8 L 2.8 L Globulin 2.0 L 2.2 L 2.2 L Albumin/Globulin Ratio 1.4 1.3 1.3 Vancomycin Trough < 3.0 L 12/09/24 12/09/24 04:52 04:56 WBC 12.4 H RBC 3.74 L Hgb 8.8 L D Hct 28.1 L MCV 75 L MCH 23.5 L MCHC 31.3 RDW Std Deviation 44.8 Plt Count 194 D Neut % (Auto) 77 Lymph % (Auto) 16 [place] % (Auto) 3 Eos % (Auto) 2 Baso % (Auto) 1 Neut # (Auto) 9.5 H Lymph # (Auto) 2.0 [place] # (Auto) 0.4 Eos # (Auto) 0.2 Baso # (Auto) 0.1 Immature Gran # (Auto) 0.22 H Absolute Nucleated RBC 0.00 Immature Gran % 2 H Nucleated RBC % 0 Puncture Site Right Radial ABG pH 7.47 H ABG pCO2 25 L ABG pO2 185 H D ABG HCO3 18 L ABG O2 Saturation 100 H ABG Base Excess -4 L FiO2 55 Sodium 148 H Potassium 3.7 D Chloride 120 H Carbon Dioxide 19.8 L Anion Gap 8 BUN 16 Creatinine 0.7 Estim Creat Clear Calc 125.1 eGFR > 60 BUN/Creatinine Ratio 23 H Glucose 117 H Calculated Osmolality 296 H Calcium 7.6 L Corrected Calcium 8.6 Phosphorus 2.1 L Magnesium 2.5 Total Bilirubin 0.6 AST 26 ALT 35 Alkaline Phosphatase 119 H Total Protein 4.7 L Albumin 2.7 L Globulin 2.0 L Albumin/Globulin Ratio 1.4 Vancomycin Trough ABG Interpretation ABG results: 12/06/24 12/07/24 12/07/24 19:19 00:58 07:43 ABG pH 6.89 L* 7.30 L D 7.34 L ABG pCO2 62 H 41 D 34 ABG pO2 287 H 197 H D 79 L D ABG HCO3 12 L 20 18 L ABG O2 Saturation 100 H 100 H 96 ABG Base Excess -21 L -6 L -7 L VBG pH VBG pCO2 VBG pO2 VBG Base Excess 12/07/24 12/07/24 12/08/24 18:26 20:15 11:09 ABG pH 7.38 7.47 H ABG pCO2 33 29 L ABG pO2 68 L 131 H D ABG HCO3 19 L 21 ABG O2 Saturation 94 100 H ABG Base Excess -5 L -2 VBG pH 7.42 VBG pCO2 27 L VBG pO2 53 VBG Base Excess -6 L 12/09/24 04:52 ABG pH 7.47 H ABG pCO2 25 L ABG pO2 185 H D ABG HCO3 18 L ABG O2 Saturation 100 H ABG Base Excess -4 L VBG pH VBG pCO2 VBG pO2 VBG Base Excess Quality Measures Quality Measures none Assessment & Plan Assessment Current Active Medications: Generic Name Dose Route Start Last Admin Trade Name Freq PRN Reason Stop Dose Admin Acetaminophen 650 mg 12/06/24 22:43 Acetaminophen Supp 650 Mg Supp AL 01/05/25 22:42 Q6HR PRN [id number] Desmopressin Acetate 2 mcg 12/08/24 21:00 12/08/24 21:12 Desmopressin Acetate 4 Mcg/Ml Vial IV 01/07/25 20:59 2 mcg BID SOULEYMANE Administration Heparin Sodium (Porcine) 5,000 unit 12/07/24 09:00 12/08/24 21:13 Heparin Sod Inj 5000 Unit/Ml Vial SC 12/21/24 08:59 5,000 unit Q12HR SOULEYMANE Administration Norepinephrine/Dextrose 8 mg in 250 mls @ 7.654 mls/hr 12/06/24 19:05 12/09/24 05:00 Levophed In D5w 8mg/250ml IV 01/05/25 19:04 0.03 mcg/kg/min .Q24H PRN 4.593 mls/hr PER PROTOCOL Titration Protocol 0.05 MCG/KG/MIN Ampicillin Sodium/Sulbactam 100 mls @ 200 mls/hr 12/08/24 12:15 12/09/24 05:17 Sodium 3 gm/ Sodium Chloride IV 12/15/24 12:14 200 mls/hr Q6HR SOULEYMANE Administration Dextrose 500 mls @ 75 mls/hr 12/09/24 02:45 12/09/24 02:35 D5w IV 01/08/25 02:44 75 mls/hr .Q6H40M SOULEYMANE Administration Lactated Ringer's 1,000 mls @ 50 mls/hr 12/09/24 01:58 12/09/24 02:35 Lactated Ringers IV 12/09/24 21:57 50 mls/hr .Q20H ONE Administration Levetiracetam 750 mg 12/07/24 09:00 12/08/24 21:13 Levetiracetam Inj 100 Mg/Ml Vial 5ml IVP 01/06/25 08:59 750 mg Q12HR SOULEYMANE Administration Ondansetron HCl 4 mg 12/06/24 22:43 Ondansetron Inj 2 Mg/Ml Inj 2 Ml IV 01/05/25 22:42 Q6H PRN NAUSEA OR VOMITING Protocol Pantoprazole Sodium 40 mg 12/07/24 09:00 12/08/24 09:25 Pantoprazole Inj 40 Mg Vial IVP 01/06/25 08:59 40 mg QDAY SOULEYMANE Administration Potassium Chloride 40 meq 12/09/24 06:19 Potassium Chloride 10% 20 Meq/15 Ml Udc GT 12/09/24 06:20 X1 ONE Plan Patient is a 34-year-old female with past medical history of epilepsy and urticaria that presented to the ED by EMS after being found down by at home. Patient admitted to ICU for further management of s/p cardiac arrest and shock requiring vasopressor support. NEURO #Severe Anoxic Encephalopathy #Cerebral Edema Patient presented with a GCC of 3T, and no response to CN activity. EEG ordered and showed diffuse isoelectic rhythm, seen consistent with hypoxic brain injury. Head CT showed diffuse cerebral edema Apnea test performed today, after electrolytes were adequately replenished/removed, and remained euthermic at 97.2-99.5. ABGs taken before and after apnea test. PaCO2 showed more than a 20 point increase and no evidence of respiratory effort noted supporting the diagnosis of brain . Pending 2nd examiner evaluation for evaluation of brain . Pre-ABG: pH 7.42, pCO2 30, 100% Fi02 Post-ABG: pH 7.17, pCO2 61 -Continue to monitor for [place] triad reflex to assess for worsening cerebral herniation normal -Neurology following, appreciate recs -Family updated on current prognosis -Donor network contacted -Pending 2nd examiner evaulation for evaluation of brain #Hx of Seizure disorder -Continue with Keppra 750mg BID, home dose CARDIO #Undifferentiated shock #S/P cardiac arrest Patient most likley had a breakthrough seizure that lead to unresponsiveness and cardiac arrest. Troponin within normal limits and EKG shows normal sinus rhythm, rate 89, no LAD, QTc 462, nonspecific ST changes Bedside echo showed collapsible IVC, more than 50% collapsibility with hyperdynamic LV contractility, however d/t extreme polyuria, patient has both hypovolemic and distributive components Less likely to be cardiogenic or obstructive Echo showed severely reduced LV function with an EF < 30%, Possible normal RV systolic function. -A-line placed for further invasive BP and central line placed for variable levophed requirements -Titrate pressors to MAP > 65 -Goal to keep patient euthermic, 97.7-99.5 PULM #AHHRF #Aspiration PNA vs Pneumonitis vs CAP DDx: most likely in the setting of hypoxia and hypoxemia while found unresponsive vs aspiration pneumonitis Patient found to have fluid and food when intubating; ABG on arrival: pH 6.89, pCO2 62, pO2 287, bicarb 12 Patient intubated upon ED arrival, and confirmed with CXR for placement. Sputum Gram stain showed GPC and 2+ WBC and culture showed 2+mixed abby Cultures negative CXR showed b/l infiltrates -Continue to monitor with ABG, and adjust vent settings accordingly -Continue IV Unasyn GI/FEN #Transaminitis in the setting of hypotension and shock #Distended fluid loops in [place] DDx: in the setting of umbilial hernia vs ileus vs SBO Unsure when patient had last BM #GI prophylaxis -start daily PPI RENAL #Lactic Acidosis-resolving #AGMA in the setting of cardiacpulmonary arrest Most likely lactic acidosis type A secondary to shock LA was 16 on admission, with a AG of 18, pH 6.89 LA downtrended -Monitor CMP Q4HR -F/u with ABG in AM for PaCO2 level #Hyperphosphatemia #Hypermagnesemia #Hypocalcemia #Hypernatremia #Hypokalemia Replete electrolytes as needed -Continue to give desmopressin 2 mcg twice daily which will help dramatically with decrease in urine ouput per hour and maintain her Na, which we will keep permissively high d/t her cerebral edema -Continue to monitor electrolytes every 4, and replete potassium and calcium as needed. -If patient's sodium continues to be high, can give extra LR boluses as well as increasing the D5W rate -Currently patient is running at 30 cc/h LR to match UO/hr which is around 20- 25cc -Goal sodium is around 148-150 HEME/ONC #Anemia-stable Patient's MCV 79. H&H stable #Leukocytosis-improving in the setting of PNA -On IV Abx for treatment ENDO #DI-improving Patient presented with polyuria and hypernatremia. -Continue to monitor UO/hr via [place] -Currently on LR 30cc/hr -Stopped D5w, but can resume if Na rises -Continue with Desmopressin 2mcg BID -Continue to monitor UO with [place] ID #Aspiration Pneumonia #Sepsis Imaging shows bilateral opacities consistent with aspiration pneumonia Sputum, blood, and urine cultures ordered qSOFA 3 points indicating 3-14 fold increase in in-hospital mortality Tylenol as needed for fever, received 30cc/kg Fluid resuscitation in the ED Gram stain showed GPC and 2+ WBC Cultures negative -Continue with IV Unasyn MSK #Acute 3rd Left rib Fracture #Fracture of sternum CT C/A/P: Acute fracture left third rib anteriorly and nondisplaced fracture body of sternum Cervical spine CT: No acute cervical fracture -Patient currently not sedated, but will give pain meds as needed Health Maintenance: DVT prophylaxis: Heparin SC Diet: NPO [place]: Yes Lines: PIV, Central, (A-line removed yesterday) Drips: Levophed Vent: Tidal volume CODE STATUS: Full code Disposition: Admitted to ICU for s/p cardiac arrest and AMS requiring intubation and shock for vasopressor support. Apnea test completed and supports diagnosis of brain . Pending 1/2 examiners for evaluation of brain . Patient's plan and care discussed with my attending, Dr. Malone. Sujata Blanchard MD PGY-2
[2024-12-09 07:15] LABS: Alanine Aminotransferase 38 U/L (10-49); Albumin, Serum 2.5 gm/dL (3.5-5.0); Albumin/Globulin Ratio 1.5 (1.2-2.2); Alkaline Phosphatase 124 U/L (46-116); Anion Gap 8 (7-16); Aspartate Amino Transferase 27 U/L (0-34); BUN/Creatinine Ratio 24 Ratio (12-20); Bilirubin,Total 0.5 mg/dL (0.3-1.2); Blood Urea Nitrogen 17 mg/dL (9-23); Calcium 7.4 mg/dL (8.3-10.6); Calcium (Corrected) 8.6 mg/dL (8.5-10.1); Carbon Dioxide 19.9 mMol/L (20.0-31.0); Chloride 120 mMol/L (98-107); Creatinine (Component) 0.7 mg/dL (0.6-1.3); Estimated Creatinine Clearance 128.5 mL/min (>60); Globulin 1.7 gm/dL (2.3-3.5); Glucose 113 mg/dL (74-106); Osmolality,Calculated 296 (275-295); Potassium 3.8 mMol/L (3.4-5.1); Sodium 148 mMol/L (136-145); Total Protein 4.2 gm/dL (5.7-8.2); eGFR > 60 See Note
[2024-12-09] MEDS: POT PHOS 15 mMol in NS 250 ML 15 MMOL/250 ML BAG 62.5 MMOL IV ×2 (07:58→11:29)
[2024-12-09] MEDS: POTASSIUM CHLORIDE 10% 20 MEQ/15 ML UDC 40 MEQ GT (08:04)
[2024-12-09] MEDS: HEPARIN SOD INJ 5000 UNIT/ML VIAL SC (08:05)
[2024-12-09] MEDS: levETIRAcetam INJ 100 MG/ML VIAL 5ML 750 MG IVP (08:05)
[2024-12-09] MEDS: PANTOPRAZOLE INJ 40 MG VIAL IVP (08:05)
[2024-12-09] MEDS: DESMOPRESSIN ACETATE 4 MCG/ML VIAL 2 MCG IV (09:03)
[2024-12-09 09:08] LABS: Base Excess -4 (-3-3); HCO3 20 mEq/L (20-26); Inspired Oxygen, FIO2 100 %; O2 Saturation 101 % (91-98); PCO2 30 mmHg (32.0-48.0); PO2 318 mmHg (83-108); pH, Arterial 7.42 (7.35-7.45)
[2024-12-09 09:11] LABS: Allen Test Performed/OK; Puncture Site Left Radial
[2024-12-09 09:36] LABS: Base Excess -6 (-3-3); HCO3 22 mEq/L (20-26); Inspired O2, VO2 Liters 12 L/min; O2 Saturation 100 % (91-98); PCO2 61 mmHg (32.0-48.0); PO2 466 mmHg (83-108)
[2024-12-09 09:37] LABS: Allen Test Performed/OK; Puncture Site Right Radial
[2024-12-09 09:39] LABS: pH, Arterial 7.17 (7.35-7.45)
--- NOTE | 2024-12-09 13:36 | PD.NEUROPROG ---
Documentation for date of: 12/09/24 Subjective Subjective Interval history: Patient was seen in ICU today at the bedside. No changes reported since admission. Remains unresponsive with a GCS of 3 with absent brainstem reflexes. Remains intubated and on mechanical ventilatory support Exam - Neurology Vital Signs Temp Pulse Resp BP Pulse Ox O2 Del Method FiO2 98.6 F 87 23 H 114/80 100 Mechanical Ventilation 40 12/09/24 12:00 12/09/24 12:30 12/09/24 12:30 12/09/24 12:30 12/09/24 12:30 12/08/24 12:01 12/09/24 12:00 Narrative Exam GENERAL APPEARANCE: Well hydrated, well-nourished intubated and on mechanical ventilatory support HEENT: Normocephalic, atraumatic, Pupils: Dilated, not reactive NECK: Supple, no JVD or bruits. CARDIOVASULAR: Heart: S1, S2 heard, regular without S3-S4 or murmur no rubs or gallops. LUNGS/CHEST: Clear to auscultation bilaterally. No rails, rhonchi, or wheezing. Normal inspection. ABDOMEN: Soft, nontender, with normal bowel sounds. No pulsatile masses. No rebound, rigidity, or guarding. Normal inspection and palpation. EXTREMITIES: Normal inspection and palpation. No edema, clubbing or cyanosis. SKIN: Warm and dry without rashes. Normal inspection. MUSCULOSKELETAL: No cervical, thoracic, lumbar or midline bony tenderness. Normal inspection. NEURO: GCS: 3, absent brainstem responses including pupillary response, doll's eye, corneal reflex, cough reflex , cold caloric and absent voluntary respiration be on the ventilator set up rate PSYCHIATRIC: Limited Objective Labs 12/09/24 04:56 12/09/24 04:56 Labs: Laboratory Results - last 24 hr 12/08/24 12/08/24 12/09/24 15:32 21:23 00:36 WBC RBC Hgb Hct MCV MCH MCHC RDW Std Deviation Plt Count Neut % (Auto) Lymph % (Auto) Vance % (Auto) Eos % (Auto) Baso % (Auto) Neut # (Auto) Lymph # (Auto) Vance # (Auto) Eos # (Auto) Baso # (Auto) Immature Gran # (Auto) Absolute Nucleated RBC Immature Gran % Nucleated RBC % Puncture Site ABG pH ABG pCO2 ABG pO2 ABG HCO3 ABG O2 Saturation ABG Base Excess Oxygen Liter Flow FiO2 Sodium 153 H 152 H 150 H Potassium 3.7 4.0 4.2 Chloride 122 H* 123 H* 121 H* Carbon Dioxide 18.6 L 18.4 L 18.8 L Anion Gap 12 11 10 BUN 13 14 14 Creatinine 0.7 0.7 0.7 Estim Creat Clear Calc 125.1 125.1 125.1 eGFR > 60 > 60 > 60 BUN/Creatinine Ratio 19 20 20 Glucose 129 H 113 H 109 H Calculated Osmolality 305 H 303 H 299 H Calcium 7.6 L 7.7 L 7.7 L Corrected Calcium 8.6 8.7 8.7 Phosphorus Magnesium Total Bilirubin 0.5 0.6 0.6 AST 34 33 30 ALT 39 41 38 Alkaline Phosphatase 115 111 112 Total Protein 4.8 L 5.0 L 5.0 L Albumin 2.8 L 2.8 L 2.8 L Globulin 2.0 L 2.2 L 2.2 L Albumin/Globulin Ratio 1.4 1.3 1.3 Vancomycin Trough < 3.0 L 12/09/24 12/09/24 12/09/24 04:52 04:56 04:56 WBC 12.4 H RBC 3.74 L Hgb 8.8 L D Hct 28.1 L MCV 75 L MCH 23.5 L MCHC 31.3 RDW Std Deviation 44.8 Plt Count 194 D Neut % (Auto) 77 Lymph % (Auto) 16 Vance % (Auto) 3 Eos % (Auto) 2 Baso % (Auto) 1 Neut # (Auto) 9.5 H Lymph # (Auto) 2.0 Vance # (Auto) 0.4 Eos # (Auto) 0.2 Baso # (Auto) 0.1 Immature Gran # (Auto) 0.22 H Absolute Nucleated RBC 0.00 Immature Gran % 2 H Nucleated RBC % 0 Puncture Site Right Radial ABG pH 7.47 H ABG pCO2 25 L ABG pO2 185 H D ABG HCO3 18 L ABG O2 Saturation 100 H ABG Base Excess -4 L Oxygen Liter Flow FiO2 55 Sodium 148 H 148 H Potassium 3.7 D Chloride Carbon Dioxide Anion Gap BUN Creatinine Estim Creat Clear Calc eGFR BUN/Creatinine Ratio Glucose Calculated Osmolality Calcium Corrected Calcium Phosphorus Magnesium Total Bilirubin AST ALT Alkaline Phosphatase Total Protein Albumin Globulin Albumin/Globulin Ratio Vancomycin Trough 12/09/24 12/09/24 12/09/24 04:56 04:56 04:56 WBC RBC Hgb Hct MCV MCH MCHC RDW Std Deviation Plt Count Neut % (Auto) Lymph % (Auto) Vance % (Auto) Eos % (Auto) Baso % (Auto) Neut # (Auto) Lymph # (Auto) Vance # (Auto) Eos # (Auto) Baso # (Auto) Immature Gran # (Auto) Absolute Nucleated RBC Immature Gran % Nucleated RBC % Puncture Site ABG pH ABG pCO2 ABG pO2 ABG HCO3 ABG O2 Saturation ABG Base Excess Oxygen Liter Flow FiO2 Sodium Potassium 3.8 Chloride 120 H 120 H Carbon Dioxide 19.8 L 19.9 L Anion Gap 8 BUN Creatinine Estim Creat Clear Calc eGFR BUN/Creatinine Ratio Glucose Calculated Osmolality Calcium Corrected Calcium Phosphorus Magnesium Total Bilirubin AST ALT Alkaline Phosphatase Total Protein Albumin Globulin Albumin/Globulin Ratio Vancomycin Trough 12/09/24 12/09/24 12/09/24 04:56 04:56 04:56 WBC RBC Hgb Hct MCV MCH MCHC RDW Std Deviation Plt Count Neut % (Auto) Lymph % (Auto) Vance % (Auto) Eos % (Auto) Baso % (Auto) Neut # (Auto) Lymph # (Auto) Vance # (Auto) Eos # (Auto) Baso # (Auto) Immature Gran # (Auto) Absolute Nucleated RBC Immature Gran % Nucleated RBC % Puncture Site ABG pH ABG pCO2 ABG pO2 ABG HCO3 ABG O2 Saturation ABG Base Excess Oxygen Liter Flow FiO2 Sodium Potassium Chloride Carbon Dioxide Anion Gap 8 BUN 16 17 Creatinine 0.7 0.7 Estim Creat Clear Calc 125.1 eGFR BUN/Creatinine Ratio Glucose Calculated Osmolality Calcium Corrected Calcium Phosphorus Magnesium Total Bilirubin AST ALT Alkaline Phosphatase Total Protein Albumin Globulin Albumin/Globulin Ratio Vancomycin Trough 12/09/24 12/09/24 12/09/24 04:56 04:56 04:56 WBC RBC Hgb Hct MCV MCH MCHC RDW Std Deviation Plt Count Neut % (Auto) Lymph % (Auto) Vance % (Auto) Eos % (Auto) Baso % (Auto) Neut # (Auto) Lymph # (Auto) Vance # (Auto) Eos # (Auto) Baso # (Auto) Immature Gran # (Auto) Absolute Nucleated RBC Immature Gran % Nucleated RBC % Puncture Site ABG pH ABG pCO2 ABG pO2 ABG HCO3 ABG O2 Saturation ABG Base Excess Oxygen Liter Flow FiO2 Sodium Potassium Chloride Carbon Dioxide Anion Gap BUN Creatinine Estim Creat Clear Calc 128.5 eGFR > 60 > 60 BUN/Creatinine Ratio 23 H 24 H Glucose 117 H Calculated Osmolality Calcium Corrected Calcium Phosphorus Magnesium Total Bilirubin AST ALT Alkaline Phosphatase Total Protein Albumin Globulin Albumin/Globulin Ratio Vancomycin Trough 12/09/24 12/09/24 12/09/24 04:56 04:56 04:56 WBC RBC Hgb Hct MCV MCH MCHC RDW Std Deviation Plt Count Neut % (Auto) Lymph % (Auto) Vance % (Auto) Eos % (Auto) Baso % (Auto) Neut # (Auto) Lymph # (Auto) Vance # (Auto) Eos # (Auto) Baso # (Auto) Immature Gran # (Auto) Absolute Nucleated RBC Immature Gran % Nucleated RBC % Puncture Site ABG pH ABG pCO2 ABG pO2 ABG HCO3 ABG O2 Saturation ABG Base Excess Oxygen Liter Flow FiO2 Sodium Potassium Chloride Carbon Dioxide Anion Gap BUN Creatinine Estim Creat Clear Calc eGFR BUN/Creatinine Ratio Glucose 113 H Calculated Osmolality 296 H 296 H Calcium 7.6 L 7.4 L Corrected Calcium 8.6 Phosphorus Magnesium Total Bilirubin AST ALT Alkaline Phosphatase Total Protein Albumin Globulin Albumin/Globulin Ratio Vancomycin Trough 12/09/24 12/09/24 12/09/24 04:56 04:56 04:56 WBC RBC Hgb Hct MCV MCH MCHC RDW Std Deviation Plt Count Neut % (Auto) Lymph % (Auto) Vance % (Auto) Eos % (Auto) Baso % (Auto) Neut # (Auto) Lymph # (Auto) Vance # (Auto) Eos # (Auto) Baso # (Auto) Immature Gran # (Auto) Absolute Nucleated RBC Immature Gran % Nucleated RBC % Puncture Site ABG pH ABG pCO2 ABG pO2 ABG HCO3 ABG O2 Saturation ABG Base Excess Oxygen Liter Flow FiO2 Sodium Potassium Chloride Carbon Dioxide Anion Gap BUN Creatinine Estim Creat Clear Calc eGFR BUN/Creatinine Ratio Glucose Calculated Osmolality Calcium Corrected Calcium 8.6 Phosphorus 2.1 L Magnesium 2.5 Total Bilirubin 0.6 0.5 AST 26 27 ALT 35 Alkaline Phosphatase Total Protein Albumin Globulin Albumin/Globulin Ratio Vancomycin Trough 12/09/24 12/09/24 12/09/24 04:56 04:56 04:56 WBC RBC Hgb Hct MCV MCH MCHC RDW Std Deviation Plt Count Neut % (Auto) Lymph % (Auto) Vance % (Auto) Eos % (Auto) Baso % (Auto) Neut # (Auto) Lymph # (Auto) Vance # (Auto) Eos # (Auto) Baso # (Auto) Immature Gran # (Auto) Absolute Nucleated RBC Immature Gran % Nucleated RBC % Puncture Site ABG pH ABG pCO2 ABG pO2 ABG HCO3 ABG O2 Saturation ABG Base Excess Oxygen Liter Flow FiO2 Sodium Potassium Chloride Carbon Dioxide Anion Gap BUN Creatinine Estim Creat Clear Calc eGFR BUN/Creatinine Ratio Glucose Calculated Osmolality Calcium Corrected Calcium Phosphorus Magnesium Total Bilirubin AST ALT 38 Alkaline Phosphatase 119 H 124 H Total Protein 4.7 L 4.2 L Albumin 2.7 L Globulin Albumin/Globulin Ratio Vancomycin Trough 12/09/24 12/09/24 12/09/24 04:56 04:56 04:56 WBC RBC Hgb Hct MCV MCH MCHC RDW Std Deviation Plt Count Neut % (Auto) Lymph % (Auto) Vance % (Auto) Eos % (Auto) Baso % (Auto) Neut # (Auto) Lymph # (Auto) Vance # (Auto) Eos # (Auto) Baso # (Auto) Immature Gran # (Auto) Absolute Nucleated RBC Immature Gran % Nucleated RBC % Puncture Site ABG pH ABG pCO2 ABG pO2 ABG HCO3 ABG O2 Saturation ABG Base Excess Oxygen Liter Flow FiO2 Sodium Potassium Chloride Carbon Dioxide Anion Gap BUN Creatinine Estim Creat Clear Calc eGFR BUN/Creatinine Ratio Glucose Calculated Osmolality Calcium Corrected Calcium Phosphorus Magnesium Total Bilirubin AST ALT Alkaline Phosphatase Total Protein Albumin 2.5 L Globulin 2.0 L 1.7 L Albumin/Globulin Ratio 1.4 1.5 Vancomycin Trough 12/09/24 12/09/24 09:03 09:29 WBC RBC Hgb Hct MCV MCH MCHC RDW Std Deviation Plt Count Neut % (Auto) Lymph % (Auto) Vance % (Auto) Eos % (Auto) Baso % (Auto) Neut # (Auto) Lymph # (Auto) Vance # (Auto) Eos # (Auto) Baso # (Auto) Immature Gran # (Auto) Absolute Nucleated RBC Immature Gran % Nucleated RBC % Puncture Site Left Radial Right Radial ABG pH 7.42 7.17 L* D ABG pCO2 30 L 61 H D ABG pO2 318 H D 466 H D ABG HCO3 20 22 ABG O2 Saturation 101 H 100 H ABG Base Excess -4 L -6 L Oxygen Liter Flow 12 FiO2 100 Sodium Potassium Chloride Carbon Dioxide Anion Gap BUN Creatinine Estim Creat Clear Calc eGFR BUN/Creatinine Ratio Glucose Calculated Osmolality Calcium Corrected Calcium Phosphorus Magnesium Total Bilirubin AST ALT Alkaline Phosphatase Total Protein Albumin Globulin Albumin/Globulin Ratio Vancomycin Trough ABG Interpretation ABG results: 12/06/24 12/07/24 12/07/24 19:19 00:58 07:43 ABG pH 6.89 L* 7.30 L D 7.34 L ABG pCO2 62 H 41 D 34 ABG pO2 287 H 197 H D 79 L D ABG HCO3 12 L 20 18 L ABG O2 Saturation 100 H 100 H 96 ABG Base Excess -21 L -6 L -7 L VBG pH VBG pCO2 VBG pO2 VBG Base Excess 12/07/24 12/07/24 12/08/24 18:26 20:15 11:09 ABG pH 7.38 7.47 H ABG pCO2 33 29 L ABG pO2 68 L 131 H D ABG HCO3 19 L 21 ABG O2 Saturation 94 100 H ABG Base Excess -5 L -2 VBG pH 7.42 VBG pCO2 27 L VBG pO2 53 VBG Base Excess -6 L 12/09/24 12/09/24 12/09/24 04:52 09:03 09:29 ABG pH 7.47 H 7.42 7.17 L* D ABG pCO2 25 L 30 L 61 H D ABG pO2 185 H D 318 H D 466 H D ABG HCO3 18 L 20 22 ABG O2 Saturation 100 H 101 H 100 H ABG Base Excess -4 L -4 L -6 L VBG pH VBG pCO2 VBG pO2 VBG Base Excess Assessment & Plan Assessment and plan (1) Anoxic brain injury: Status: Acute Assessment and plan: With underlying seizure disorder, suspected seizure leading to hypoxia/aspiration of gastric contents. GCS: 3 with absent brainstem responses. CT head: diffuse cerebral edema EEG showed isoelectric rhythm consistent with cerebral following anoxic brain injury. At this time: she is pronounced brain . No other intervention needed. Discussed with family with all the details. Procedures Arterial Line Size (Gauge): 20
--- NOTE | 2024-12-09 15:06 | DES_ITS ---
<Statement entered by Kingston Malone MD - 12/10/24 12:34> TOTAL TIME: 45MINUTES ON DIRECT MEDICAL CARE, MANAGEMENT - COORDINATION AND COUNSELING > 50% OF TOTAL TIME I saw and evaluated the patient. I reviewed the resident?s note and agree with findings and plan as documented in the resident?s note. A repeat physical exam and apnea test was completed today confirming that Mrs. Whatley met the definition of brain . Brainstem reflexes were absent and no spontaneous respirations were identified during a 10-minute apnea exam disconnected from the mechanical ventilator. Post testing ABG results were consistent with no spontaneous respirations. She remained off any sedatives and no severe metabolic derangements were present prior to the testing. Family was informed of the results. Documentation for date of: 12/09/24 Summary Date and Time Date of admission: 12/06/24 22:58 Date of : 12/09/24 Time of : 14:56 Summary Hospital Course: Patient is a 34-year-old female with past medical history of epilepsy and urticaria that presented to the ED by EMS after being found down by at home on 12/06/24. In the ED, patient achieved ROSC but approximately more than 1 hour after being found unresponsive. Patient admitted to ICU for further management of s/p cardiac arrest and shock requiring vasopressor support and intubation for airway protection. Patient was on antibiotic treatment for her bilateral pneumonia as seen on CXR imaging and given pressor support to titrate MAP > 65 in the setting of undifferentiated shock. Echo showed severely reduced LV function with an EF < 30%. Despite interventions, patient's GCS of 3T was unchanged on presentation. EEG ordered and showed diffuse isoelectic rhythm, seen consistent with hypoxic brain injury. Head CT showed diffuse cerebral edema. Apnea test performed morning of 12/09/24 after electrolytes were adequ ately corrected, while maintaining euthermia. ABGs taken before and after apnea test. PaCO2 showed more than a 20 point increase and no evidence of respiratory effort noted supporting the diagnosis of brain . Two examiners performed separate evaluations and pronounced brain at 13:36 on 12/09/24. Diagnoses addressed during hospital stay: #Severe Anoxic Encephalopathy #Cerebral Edema #Hx of Seizure disorder #Undifferentiated shock #S/P cardiac arrest #AHHRF #Aspiration PNA vs Pneumonitis vs CAP #Transaminitis #Distended fluid loops in [place] #GI prophylaxis #Lactic Acidosis-resolving #AGMA #Hyperphosphatemia #Hypermagnesemia #Hypocalcemia #Hypernatremia #Hypokalemia #Anemia-stable #Leukocytosis-improving #DI-improving #Aspiration Pneumonia #Sepsis #Acute 3rd Left rib Fracture #Fracture of sternum Patient's plan and care discussed with my attending, Dr. Malone. Sujata Blanchard MD PGY-2 Additional Data Confirmation of as documented by pronouncing clinician: pupils fixed and dilated Family: at bedside Attending/PCP notified?: Yes Attending physician: Mickey Malone MD Was code activated?: No Organ bank notified?: Yes Advance directives: No Hospice patient?: No Visit Providers Provider Primary care physician: Physician No Primary/Family Consults: 12/06/24 23:42 Consult to Neurology / Tele-Neurology Routine Comment: Consulting Provider: Azar Blanchard Diagnosis PCOD Cause of : Brain Contributing Factors (1) Anoxic brain injury: (2) Cerebral edema: Discharge Plan Plan Patient Disposition: Prescriptions/Referrals Referrals: No Primary/Family,Physician [Primary Care Provider] - Patient/Caregiver Discharge Instructions Print Language: Japanese
--- NOTE | 2024-12-09 15:06 | DES_ITS ---
<Statement entered by Kingston Malone MD - 12/10/24 12:19> I saw and evaluated the patient. I reviewed the resident?s note and agree with findings and plan as documented in the resident?s note. Documentation for date of: 12/09/24 Pronouncement Note Date and Time of Date of : 12/09/24 Time of : 13:36 PCOD Preliminary cause of : Brain Contributing Factors (1) Anoxic brain injury: (2) Cerebral edema: Additional Data Confirmation of : pupils fixed and dilated Family: at bedside Attending/PCP notified?: Yes Attending physician: Mickey Malone MD Was code activated?: No Organ bank notified?: Yes Advance directives: No
== END 2024-12-09 13:36 | disposition expired | DRG 52 ==
LOC: SERX 22:01 → SERHOLD 23:05 → S2SX 23:46
PROVIDERS: Internal Medicine; Student in an Organized Health Care Education/Training Program; Admitting Provider Student in an Organized Health Care Education/Training Program; Emergency Provider Emergency Medicine; Visit Provider Internal Medicine
DX: G93.1 Anoxic brain damage, not elsewhere classified; I46.8 Cardiac arrest due to other underlying condition; J96.01 Acute respiratory failure with hypoxia; R57.9 Shock, unspecified; G40.909 Epilepsy, unspecified, not intractable, without status epilepticus; G93.6 Cerebral edema; J96.02 Acute respiratory failure with hypercapnia; J69.0 Pneumonitis due to inhalation of food and vomit; E83.39 Other disorders of phosphorus metabolism; R74.01 Elevation of levels of liver transaminase levels; D64.9 Anemia, unspecified; E83.41 Hypermagnesemia; E83.51 Hypocalcemia; S22.32XA Fracture of one rib, left side, initial encounter for closed fracture; G43.909 Migraine, unspecified, not intractable, without status migrainosus; K21.9 Gastro-esophageal reflux disease without esophagitis; S22.20XA Unspecified fracture of sternum, initial encounter for closed fracture; A41.9 Sepsis, unspecified organism; E86.1 Hypovolemia; N39.0 Urinary tract infection, site not specified; J30.2 Other seasonal allergic rhinitis; J18.9 Pneumonia, unspecified organism; L50.9 Urticaria, unspecified; T17.918A Gastric contents in respiratory tract, part unspecified causing other injury, initial encounter; E23.2 Diabetes insipidus; W44.F9XA Other object of natural or organic material, entering into or through a natural orifice, initial encounter; Z98.51 Tubal ligation status; Z79.899 Other long term (current) drug therapy; Z88.8 Allergy status to other drugs, medicaments and biological substances
CPT/HCPCS: 36415; 36600; 70450; 71045; 71260; 72125; 74177; 80048; 80053; 80202; 81001; 82803; 83605; 83615; 83690; 83735; 83880; 84100; 84145; 84484; 85025; 85610; 85730; 87040; 87081; 87086; 87205; 93306; 94002; 94003; 94762; 95816; A4649; J0295; J0613; J1643; J1953; J2470; J2543; J2597; J3371; J3475; J3480; J3490; J7030; J7040; J7050; J7060; J7070; J7120; J7999; Q9967; A9270